=== PATIENT | male | born 1965 | race Two or more races ===

== ENCOUNTER 2020-10-31 14:06 | Emergency (ER) | payer OTHER ==
[2020-10-31 14:16] VITALS: BP 147/82; PULSE 92; TEMP 98; BMI 35.4
== END 2020-10-31 14:50 | disposition home or self-care (01) ==
LOC: JER 14:06
PROC: 0H9GXZZ Drainage of Left Hand Skin, External Approach (ICD-10-PCS; principal; 2020-10-31)
DX: L03.012 Cellulitis of left finger (principal)
CPT/HCPCS: 99282-25

== ENCOUNTER 2021-10-04 04:30 | Emergency (ER) | payer OTHER ==
[2021-10-04] MEDS ORDERED: SODIUM CHLORIDE 0.9% 500 ML INFUS.BAG IV ONE (04:44)
[2021-10-04 04:52] VITALS: BMI 36.9
[2021-10-04 05:57] LABS: BASO % 0.3 % (0-2.0); EOS % 2.5 % (0-4.5); HEMATOCRIT 45.5 % (35.4-49); HEMOGLOBIN 15.3 GM/dL (11.7-16.9); LYMPH % 16.4 % (8-40); MCH 29.6 pg (25.7-33.7); MCHC 33.6 g/dl (32.0-35.9); MEAN CELL VOLUME 88.3 fl (80-96); MEAN PLT VOLUME 7.9 fl (7.5-11.1); MONO % 7.4 % (3.8-10.2); NEUT % 73.4 % (42.8-82.8); PLATELET COUNT 204 10^3/uL (134-434); RBC 5.15 M/mm3 (4.00-5.60); RDW 12.8 % (11.9-15.9)
[2021-10-04 06:00] LABS: VENOUS BASE EXCESS -6.2 mmol/L (-2-2); VENOUS O2 SATURATION 28.6 % (70-80); VENOUS PCO2 45.9 mmHg (38-52); VENOUS PH 7.272 (7.310-7.410)
[2021-10-04 06:10] LABS: INR 1.08 (0.83-1.09); PROTHROMBIN TIME (PATIENT) 12.4 SEC (9.7-13.0)
[2021-10-04 06:16] LABS: BLOOD UREA NITROGEN 10.8 mg/dL (7-18); CALCIUM 8.8 mg/dL (8.5-10.1)
[2021-10-04 06:19] LABS: CREATININE 1.1 mg/dL (0.55-1.3)
[2021-10-04 06:21] LABS: BILIRUBIN,TOTAL 0.4 mg/dL (0.2-1); TOT PROT 7.9 g/dl (6.4-8.2)
[2021-10-04 06:34] LABS: EPI CELLS 1 /uL (0-25.1); HYALINE CASTS 0 /uL (0-3.1); URINE APPEARANCE CLEAR; URINE BACTERIA 2 /uL (0-1359); URINE BILIRUBIN NEGATIVE (NEGATIVE); URINE COLOR YELLOW; URINE GLUCOSE (UA) 3+ (NEGATIVE); URINE KETONE TRACE (NEGATIVE); URINE LEUK ESTERASE NEGATIVE (NEGATIVE); URINE NITRITE NEGATIVE (NEGATIVE); URINE PROTEIN NEGATIVE (NEGATIVE); URINE RBC 41 /uL (0-23.9); URINE UROBILINOGEN 0.2 mg/dL (0.2-1.0); URINE WBC 6 /uL (0-25.8)
[2021-10-04 06:39] LABS: METHADONE, UR NEGATIVE (NEGATIVE); OPIATES, URI NEGATIVE (NEGATIVE); PHENCYCLIDINE,URINE NEGATIVE (NEGATIVE)
[2021-10-04 06:42] LABS: URINE BENZODIAZEPINES NEGATIVE (NEGATIVE)
[2021-10-04 06:46] LABS: COCAINE, UR NEGATIVE (NEGATIVE); URINE AMPHETAMINES NEGATIVE (NEGATIVE); URINE BARBITURATES NEGATIVE (NEGATIVE)
[2021-10-04 06:54] VITALS: BP 105/64
[2021-10-04 07:02] VITALS: TEMP 98
[2021-10-04 07:30] VITALS: PULSE 103
== END 2021-10-04 08:56 | disposition short-term general hospital (02) ==
LOC: JER 04:30
PROC: 3E033NZ Introduction of Analgesics, Hypnotics, Sedatives into Peripheral Vein, Percutaneous Approach (ICD-10-PCS; principal; 2021-10-04)
DX: S22.060A Wedge compression fracture of T7-T8 vertebra, initial encounter for closed fracture (principal); G82.22 Paraplegia, incomplete; S14.109A Unspecified injury at unspecified level of cervical spinal cord, initial encounter; J91.8 Pleural effusion in other conditions classified elsewhere; W10.9XXA Fall (on) (from) unspecified stairs and steps, initial encounter
CPT/HCPCS: 36415; 70450-TC; 70486-TC; 71260-TC; 72125-TC; 72128-TC; 72131-TC; 74177-TC; 80053; 80307; 81003; 82803; 82962; 84484; 85025; 85610; 86850; 86900; 86901; 87086; 93005; 93010; 99291; C9803-CS; Q9967; U0003; U0005

== ENCOUNTER 2021-12-13 20:41 | Inpatient (IN) | payer OTHER ==
[2021-12-13 23:18] LABS: BASO % 0.3 % (0-2.0); EOS % 0.9 % (0-4.5); HEMATOCRIT 37.3 % (35.4-49); HEMOGLOBIN 12.5 GM/dL (11.7-16.9); LYMPH % 9.8 % (8-40); MCH 27.1 pg (25.7-33.7); MCHC 33.6 g/dl (32.0-35.9); MEAN CELL VOLUME 80.7 fl (80-96); MEAN PLT VOLUME 7.1 fl (7.5-11.1); MONO % 7.9 % (3.8-10.2); NEUT % 81.1 % (42.8-82.8); PLATELET COUNT 252 10^3/uL (134-434); RBC 4.62 M/mm3 (4.00-5.60); RDW 14.1 % (11.9-15.9); WHITE BLOOD COUNT 12.2 K/mm3 (4.0-10.0)
[2021-12-13 23:31] LABS: CALCIUM 8.6 mg/dL (8.5-10.1)
[2021-12-13 23:32] LABS: ALBUMIN 2.6 g/dl (3.4-5.0); BLOOD UREA NITROGEN 13.5 mg/dL (7-18)
[2021-12-13 23:35] LABS: CREATININE 0.9 mg/dL (0.55-1.3)
[2021-12-13 23:35] LABS: EPI CELLS 2 /uL (0-25.1); HYALINE CASTS 0 /uL (0-3.1); URINE APPEARANCE TURBID; URINE BACTERIA >9,000 /uL (0-1359); URINE BILIRUBIN NEGATIVE (NEGATIVE); URINE COLOR YELLOW; URINE GLUCOSE (UA) NEGATIVE (NEGATIVE); URINE KETONE NEGATIVE (NEGATIVE); URINE LEUK ESTERASE 3+ (NEGATIVE); URINE NITRITE NEGATIVE (NEGATIVE); URINE PROTEIN 1+ (NEGATIVE); URINE RBC 52 /uL (0-23.9); URINE WBC 2086 /uL (0-25.8)
[2021-12-13 23:37] LABS: BILIRUBIN,TOTAL 0.7 mg/dL (0.2-1); TOT PROT 6.9 g/dl (6.4-8.2)
[2021-12-13] MEDS ORDERED: PIPERACILLIN/TAZOB 4.5 GM 4.5 GM in DEXTROSE 5%-WATER 100 ML IVPB ONE (23:55)
[2021-12-14] MEDS ORDERED: PIPERACILLIN/TAZOB 4.5 GM 4.5 GM/100 ML BAG IVPB ONE (01:17)
[2021-12-14] MEDS: SODIUM CHLORIDE 1,000 ML IV SCH (01:20)
[2021-12-14] MEDS ORDERED: CELECOXIB 100 MG CAPSULE PO PRN (02:11)
[2021-12-14] MEDS: INSULIN SLIDING SCALE (NOVOLOG) 1 VIAL SQ SCH ×4 (06:22→21:52)
[2021-12-14 08:39] LABS: BASO % 0.3 % (0-2.0); EOS % 2.1 % (0-4.5); HEMATOCRIT 34.6 % (35.4-49); HEMOGLOBIN 11.4 GM/dL (11.7-16.9); LYMPH % 15.7 % (8-40); MCH 26.9 pg (25.7-33.7); MCHC 32.9 g/dl (32.0-35.9); MEAN CELL VOLUME 81.9 fl (80-96); MEAN PLT VOLUME 7.5 fl (7.5-11.1); MONO % 8.4 % (3.8-10.2); NEUT % 73.5 % (42.8-82.8); PLATELET COUNT 250 10^3/uL (134-434); RBC 4.22 M/mm3 (4.00-5.60); RDW 14.2 % (11.9-15.9); WHITE BLOOD COUNT 11.8 K/mm3 (4.0-10.0)
[2021-12-14 08:43] LABS: INR 1.31 (0.83-1.09); PROTHROMBIN TIME (PATIENT) 15.1 SEC (9.7-13.0)
[2021-12-14 08:46] LABS: ACTIVATED PTT 34.1 SECONDS (25.2-36.5)
[2021-12-14] MEDS ORDERED: DEXTROSE 5%-WATER - 50 ML IVPB ONE ×2 (09:03→17:44)
[2021-12-14] MEDS ORDERED: PIPERACILLIN/TAZOBACTAM 3.375 GM VIAL IVPB ONE ×2 (09:03→17:44)
[2021-12-14 09:10] LABS: CALCIUM 8.6 mg/dL (8.5-10.1)
[2021-12-14 09:11] LABS: MAGNESIUM 1.9 mg/dL (1.8-2.4)
[2021-12-14 09:12] LABS: BLOOD UREA NITROGEN 12.2 mg/dL (7-18)
[2021-12-14 09:13] LABS: CREATININE 0.7 mg/dL (0.55-1.3)
[2021-12-14 09:14] LABS: PHOSPHOROUS 4.5 mg/dL (2.5-4.9)
[2021-12-14] MEDS: PANTOPRAZOLE 40 MG TABLET PO SCH (09:14)
[2021-12-14] MEDS: ENOXAPARIN NA (PORCINE) 40 MG/0.4 ML DISP.SYRIN SQ SCH (09:14)
[2021-12-14] MEDS ORDERED: PIPERACILLIN/TAZOB 3.375 GM 3.375 GM in DEXTROSE 5%-WATER - 50 ML IVPB SCH (10:00)
[2021-12-14] MEDS ORDERED: METOCLOPRAMIDE HCL 10 MG TABLET (FP) PO SCH (10:00)
[2021-12-14] MEDS ORDERED: BISACODYL 10 MG SUPP.RECT PR PRN (15:00)
[2021-12-14] MEDS: PIPERACILLIN/TAZOB 3.375 GM 3.375 GM in DEXTROSE 5%-WATER - 50 ML IVPB SCH (18:00)
[2021-12-14] MEDS: ACETAMINOPHEN 325 MG TABLET (FP) PO PRN (19:12)
[2021-12-14] MEDS: ATORVASTATIN CA 10 MG TABLET (FP) PO SCH (21:53)
[2021-12-15] MEDS ORDERED: PIPERACILLIN/TAZOBACTAM 3.375 GM VIAL IVPB ONE ×2 (01:17→10:22)
[2021-12-15] MEDS ORDERED: DEXTROSE 5%-WATER - 50 ML IVPB ONE ×2 (01:17→10:22)
[2021-12-15] MEDS: ACETAMINOPHEN 325 MG TABLET (FP) PO PRN ×2 (01:44→22:26)
[2021-12-15] MEDS: PIPERACILLIN/TAZOB 3.375 GM 3.375 GM in DEXTROSE 5%-WATER - 50 ML IVPB SCH ×2 (01:44→10:28)
[2021-12-15] MEDS: SODIUM CHLORIDE 1,000 ML IV SCH (01:45)
[2021-12-15] MEDS: INSULIN SLIDING SCALE (NOVOLOG) 1 VIAL SQ SCH ×4 (07:19→22:25)
[2021-12-15] MEDS: ENOXAPARIN NA (PORCINE) 40 MG/0.4 ML DISP.SYRIN SQ SCH (10:25)
[2021-12-15] MEDS: PANTOPRAZOLE 40 MG TABLET PO SCH (10:26)
[2021-12-15 11:01] LABS: BASO % 0.6 % (0-2.0); EOS % 5.5 % (0-4.5); HEMATOCRIT 33.7 % (35.4-49); HEMOGLOBIN 11.1 GM/dL (11.7-16.9); LYMPH % 17.3 % (8-40); MEAN PLT VOLUME 7.5 fl (7.5-11.1); MONO % 6.5 % (3.8-10.2); NEUT % 70.1 % (42.8-82.8); PLATELET COUNT 256 10^3/uL (134-434); RBC 4.12 M/mm3 (4.00-5.60); RDW 14.2 % (11.9-15.9); WHITE BLOOD COUNT 7.9 K/mm3 (4.0-10.0)
[2021-12-15 11:47] LABS: ALBUMIN 2.4 g/dl (3.4-5.0); BLOOD UREA NITROGEN 7.4 mg/dL (7-18); CALCIUM 8.4 mg/dL (8.5-10.1)
[2021-12-15 11:50] LABS: CREATININE 0.5 mg/dL (0.55-1.3)
[2021-12-15 11:52] LABS: BILIRUBIN,TOTAL 1.4 mg/dL (0.2-1); TOT PROT 6.5 g/dl (6.4-8.2)
[2021-12-15 16:14] VITALS: BMI 34.9
[2021-12-15] MEDS: AMINO ACIDS/PROTEIN HYDROLYS 30 ML LIQUID.PKT PO SCH (17:35)
[2021-12-15] MEDS ORDERED: GABAPENTIN 300 MG CAPSULE PO SCH ×2 (22:00)
[2021-12-15] MEDS: ATORVASTATIN CA 10 MG TABLET (FP) PO SCH (22:07)
[2021-12-15] MEDS: SULFAMETHOXAZOLE/TRIMETHOPRIM 800MG/160MG D.S. TABLET PO SCH (22:07)
[2021-12-15] MEDS: METOCLOPRAMIDE HCL 10 MG TABLET (FP) PO SCH (22:07)
[2021-12-16] MEDS: GABAPENTIN 300 MG CAPSULE PO SCH ×2 (05:48→13:46)
[2021-12-16] MEDS: INSULIN SLIDING SCALE (NOVOLOG) 1 VIAL SQ SCH ×2 (06:22→11:19)
[2021-12-16 09:00] LABS: HEMATOCRIT 34.5 % (35.4-49); HEMOGLOBIN 11.5 GM/dL (11.7-16.9); MCH 27.1 pg (25.7-33.7); MCHC 33.4 g/dl (32.0-35.9); MEAN CELL VOLUME 81.3 fl (80-96); MEAN PLT VOLUME 6.9 fl (7.5-11.1); PLATELET COUNT 265 10^3/uL (134-434); RBC 4.25 M/mm3 (4.00-5.60); RDW 14.1 % (11.9-15.9); WHITE BLOOD COUNT 6.9 K/mm3 (4.0-10.0)
[2021-12-16] MEDS: AMINO ACIDS/PROTEIN HYDROLYS 30 ML LIQUID.PKT PO SCH (09:05)
[2021-12-16] MEDS: ENOXAPARIN NA (PORCINE) 40 MG/0.4 ML DISP.SYRIN SQ SCH (09:05)
[2021-12-16] MEDS: SULFAMETHOXAZOLE/TRIMETHOPRIM 800MG/160MG D.S. TABLET PO SCH (09:05)
[2021-12-16] MEDS: PANTOPRAZOLE 40 MG TABLET PO SCH (09:06)
[2021-12-16] MEDS: METOCLOPRAMIDE HCL 10 MG TABLET (FP) PO SCH (09:07)
[2021-12-16 09:39] LABS: BLOOD UREA NITROGEN 8.4 mg/dL (7-18)
[2021-12-16 09:40] LABS: CREATININE 0.5 mg/dL (0.55-1.3); PHOSPHOROUS 4.1 mg/dL (2.5-4.9)
[2021-12-16] MEDS ORDERED: ASCORBIC ACID 500 MG TABLET (FP) PO SCH (10:00)
[2021-12-16] MEDS ORDERED: CHOLECALCIFEROL (VIT D3) 1,000 UNIT (25 MCG) TABLET PO SCH (10:00)
[2021-12-16] MEDS ORDERED: SIMETHICONE 80 MG TAB.CHEW (FP) PO SCH (10:00)
[2021-12-16] MEDS ORDERED: COLLAGENASE CLOSTRIDIUM HIST. 30 GRAMS TUBE TP SCH (10:45)
[2021-12-16 14:06] VITALS: BP 113/62; PULSE 76; TEMP 98.9
== END 2021-12-16 17:50 | disposition home health service (06) | DRG 463 ==
LOC: JER 20:41 → JERBED 12-14 00:50 → J8W 12-14 04:21
PROVIDERS: ADMIT Hospitalist; ATTEND Internal Medicine
DX: N39.0 Urinary tract infection, site not specified (principal); B96.29 Other Escherichia coli [E. coli] as the cause of diseases classified elsewhere; E11.9 Type 2 diabetes mellitus without complications; G82.20 Paraplegia, unspecified; L89.153 Pressure ulcer of sacral region, stage 3; E66.9 Obesity, unspecified; Z68.35 Body mass index [BMI] 35.0-35.9, adult
CPT/HCPCS: 36415; 71045-TC-FY; 80048; 80053; 81003; 82962; 83735; 84100; 85025; 85027; 85610; 85730; 87086; 87186; 93005; 93010; 99285-25; C9803-CS; E0372; U0003; U0005

== ENCOUNTER 2022-04-24 11:34 | Inpatient (IN) | payer OTHER ==
[2022-04-24 15:39] LABS: BASO % 0.4 % (0-2.0); EOS % 6.2 % (0-4.5); HEMATOCRIT 38.4 % (35.4-49); MCH 27.7 pg (25.7-33.7); MEAN CELL VOLUME 81.5 fl (80-96); MEAN PLT VOLUME 7.9 fl (7.5-11.1); MONO % 5.8 % (3.8-10.2); NEUT % 67.6 % (42.8-82.8); PLATELET COUNT 253 10^3/uL (134-434); RBC 4.71 M/mm3 (4.00-5.60); RDW 14.3 % (11.9-15.9); WHITE BLOOD COUNT 10.4 K/mm3 (4.0-10.0)
[2022-04-24] MEDS ORDERED: VANCOMYCIN 1 GM in D5W (PRE-DOCKED) 1,000 MG/250 ML IVPB ONE (16:02)
[2022-04-24 16:04] LABS: CALCIUM 8.4 mg/dL (8.5-10.1)
[2022-04-24 16:05] LABS: ALBUMIN 2.9 g/dl (3.4-5.0); BLOOD UREA NITROGEN 10.6 mg/dL (7-18)
[2022-04-24 16:08] LABS: CREATININE 0.6 mg/dL (0.55-1.3)
[2022-04-24 16:09] LABS: BILIRUBIN,TOTAL 0.4 mg/dL (0.2-1); TOT PROT 7.3 g/dl (6.4-8.2)
[2022-04-24] MEDS ORDERED: VANCOMYCIN/WATER FOR INJ (PEG) 1,000 MG/200 ML BAG IVPB ONE (16:29)
[2022-04-24] MEDS ORDERED: oxyCODONE HCL 5 MG TABLET PO PRN (17:19)
[2022-04-24] MEDS ORDERED: PIPERACILLIN/TAZOB 3.375 GM 3.375 GM in DEXTROSE 5%-WATER - 50 ML IVPB ONE (17:27)
[2022-04-24] MEDS ORDERED: PIPERACILLIN/TAZOB 3.375 GM 3.375 GM/50 ML BAG IVPB ONE (17:44)
[2022-04-24] MEDS: ATORVASTATIN CA 10 MG TABLET (FP) PO SCH (22:36)
[2022-04-24] MEDS: GABAPENTIN 300 MG CAPSULE PO SCH (22:36)
[2022-04-24] MEDS: HEPARIN NA (PORCINE) 5,000 UNITS/ML 1ML VIAL SQ SCH (22:36)
[2022-04-24] MEDS: INSULIN SLIDING SCALE (NOVOLOG) 1 VIAL SQ SCH (22:48)
[2022-04-24] MEDS: CELECOXIB 100 MG CAPSULE PO SCH (22:56)
[2022-04-24] MEDS: MESALAMINE 1000 MG/SUPP.RECT SUPP RC SCH (22:56)
[2022-04-24 23:08] VITALS: BMI 32.1
[2022-04-25] MEDS: GABAPENTIN 300 MG CAPSULE PO SCH ×3 (06:34→22:31)
[2022-04-25] MEDS: INSULIN SLIDING SCALE (NOVOLOG) 1 VIAL SQ SCH ×4 (06:37→22:35)
[2022-04-25] MEDS: HEPARIN NA (PORCINE) 5,000 UNITS/ML 1ML VIAL SQ SCH ×3 (06:37→22:31)
[2022-04-25] MEDS: TAMSULOSIN HCL 0.4 MG CAP PO SCH (08:29)
[2022-04-25 09:23] LABS: BASO % 0.7 % (0-2.0); EOS % 8.6 % (0-4.5); HEMATOCRIT 37.8 % (35.4-49); HEMOGLOBIN 12.8 GM/dL (11.7-16.9); LYMPH % 28.9 % (8-40); MCH 27.5 pg (25.7-33.7); MEAN CELL VOLUME 80.9 fl (80-96); MEAN PLT VOLUME 7.3 fl (7.5-11.1); MONO % 7.9 % (3.8-10.2); NEUT % 53.9 % (42.8-82.8); PLATELET COUNT 253 10^3/uL (134-434); RBC 4.67 M/mm3 (4.00-5.60); RDW 14.3 % (11.9-15.9); WHITE BLOOD COUNT 8.3 K/mm3 (4.0-10.0)
[2022-04-25 09:42] LABS: CALCIUM 8.7 mg/dL (8.5-10.1)
[2022-04-25 09:44] LABS: BLOOD UREA NITROGEN 11.1 mg/dL (7-18)
[2022-04-25 09:46] LABS: CREATININE 0.6 mg/dL (0.55-1.3)
[2022-04-25 09:48] LABS: BILIRUBIN,TOTAL 0.5 mg/dL (0.2-1); TOT PROT 7.3 g/dl (6.4-8.2)
[2022-04-25] MEDS: CELECOXIB 100 MG CAPSULE PO SCH ×2 (10:00→22:29)
[2022-04-25] MEDS ORDERED: SIMETHICONE 80 MG TAB.CHEW (FP) PO PRN (10:00)
[2022-04-25] MEDS: METOCLOPRAMIDE HCL 10 MG TABLET (FP) PO SCH (10:00)
[2022-04-25] MEDS: PANTOPRAZOLE 20 MG TABLET PO SCH (10:01)
[2022-04-25] MEDS: CHOLECALCIFEROL (VIT D3) 1,000 UNIT (25 MCG) TABLET PO SCH (10:01)
[2022-04-25] MEDS: SENNOSIDES 8.6MG TABLET (FP) PO SCH (10:01)
[2022-04-25] MEDS: INSULIN (LEVEMIR) 100 UNITS/ML UNITS SQ SCH (10:14)
[2022-04-25] MEDS ORDERED: VANCOMYCIN/WATER FOR INJ (PEG) 1 GM/200 ML BAG IVPB SCH (11:00)
[2022-04-25] MEDS ORDERED: oxyCODONE HCL 5 MG TABLET PO PRN (11:32)
[2022-04-25] MEDS: PSYLLIUM 5.85 GM PACKET PO SCH (12:59)
[2022-04-25] MEDS: COLLAGENASE CLOSTRIDIUM HIST. 30 GRAMS TUBE TP SCH (14:56)
[2022-04-25] MEDS: PIPERACILLIN/TAZOB 3.375 GM 3.375 GM in DEXTROSE 5%-WATER - 50 ML IVPB SCH (20:03)
[2022-04-25] MEDS: MESALAMINE 1000 MG/SUPP.RECT SUPP RC SCH (22:26)
[2022-04-25] MEDS: ATORVASTATIN CA 10 MG TABLET (FP) PO SCH (22:30)
[2022-04-26] MEDS: VANCOMYCIN/WATER FOR INJ (PEG) 1,000 MG/200 ML BAG IVPB SCH ×2 (00:32→12:07)
[2022-04-26] MEDS: PIPERACILLIN/TAZOB 3.375 GM 3.375 GM in DEXTROSE 5%-WATER - 50 ML IVPB SCH ×3 (02:10→18:22)
[2022-04-26] MEDS: HEPARIN NA (PORCINE) 5,000 UNITS/ML 1ML VIAL SQ SCH ×3 (06:05→22:23)
[2022-04-26] MEDS: GABAPENTIN 300 MG CAPSULE PO SCH ×3 (06:06→22:21)
[2022-04-26] MEDS: INSULIN SLIDING SCALE (NOVOLOG) 1 VIAL SQ SCH ×4 (06:08→22:22)
[2022-04-26] MEDS: CELECOXIB 100 MG CAPSULE PO SCH ×2 (09:45→22:21)
[2022-04-26] MEDS: CHOLECALCIFEROL (VIT D3) 1,000 UNIT (25 MCG) TABLET PO SCH (09:45)
[2022-04-26] MEDS: TAMSULOSIN HCL 0.4 MG CAP PO SCH (09:45)
[2022-04-26] MEDS: SENNOSIDES 8.6MG TABLET (FP) PO SCH (09:45)
[2022-04-26] MEDS: PANTOPRAZOLE 20 MG TABLET PO SCH (09:45)
[2022-04-26] MEDS: PSYLLIUM 5.85 GM PACKET PO SCH (09:45)
[2022-04-26] MEDS: COLLAGENASE CLOSTRIDIUM HIST. 30 GRAMS TUBE TP SCH (09:46)
[2022-04-26] MEDS: METOCLOPRAMIDE HCL 10 MG TABLET (FP) PO SCH (09:46)
[2022-04-26] MEDS: INSULIN (LEVEMIR) 100 UNITS/ML UNITS SQ SCH (09:47)
[2022-04-26 10:10] LABS: BASO % 0.8 % (0-2.0); EOS % 9.4 % (0-4.5); HEMATOCRIT 35.7 % (35.4-49); LYMPH % 28.7 % (8-40); MCH 27.4 pg (25.7-33.7); MCHC 33.7 g/dl (32.0-35.9); MEAN CELL VOLUME 81.4 fl (80-96); MONO % 7.1 % (3.8-10.2); PLATELET COUNT 231 10^3/uL (134-434); RBC 4.39 M/mm3 (4.00-5.60); RDW 14.1 % (11.9-15.9); WHITE BLOOD COUNT 7.9 K/mm3 (4.0-10.0)
[2022-04-26 10:32] LABS: ALBUMIN 2.7 g/dl (3.4-5.0); BLOOD UREA NITROGEN 10.1 mg/dL (7-18); CALCIUM 8.3 mg/dL (8.5-10.1); MAGNESIUM 1.7 mg/dL (1.8-2.4)
[2022-04-26 10:34] LABS: CREATININE 0.6 mg/dL (0.55-1.3)
[2022-04-26 10:36] LABS: BILIRUBIN,TOTAL 0.4 mg/dL (0.2-1); PHOSPHOROUS 3.4 mg/dL (2.5-4.9); TOT PROT 6.8 g/dl (6.4-8.2)
[2022-04-26 15:44] LABS: EPI CELLS 11 /uL (0-25.1); HYALINE CASTS 0 /uL (0-3.1); PH,URINE 5.5 (5.0-8.0); URINE APPEARANCE CLEAR; URINE BACTERIA 9 /uL (0-1359); URINE BILIRUBIN NEGATIVE (NEGATIVE); URINE COLOR YELLOW; URINE GLUCOSE (UA) 2+ (NEGATIVE); URINE KETONE NEGATIVE (NEGATIVE); URINE LEUK ESTERASE 2+ (NEGATIVE); URINE NITRITE NEGATIVE (NEGATIVE); URINE PROTEIN NEGATIVE (NEGATIVE); URINE UROBILINOGEN 0.2 mg/dL (0.2-1.0); URINE WBC 379 /uL (0-25.8)
[2022-04-26 17:29] LABS: URINE RBC 72.6 /uL (0-23.9)
[2022-04-26 17:30] LABS: YEAST PRESENT (NEGATIVE)
[2022-04-26 19:03] VITALS: RESP 18
[2022-04-26] MEDS: ATORVASTATIN CA 10 MG TABLET (FP) PO SCH (22:21)
[2022-04-26] MEDS: MESALAMINE 1000 MG/SUPP.RECT SUPP RC SCH ×2 (22:21→22:27)
[2022-04-27] MEDS: PIPERACILLIN/TAZOB 3.375 GM 3.375 GM in DEXTROSE 5%-WATER - 50 ML IVPB SCH ×3 (01:13→17:28)
[2022-04-27] MEDS: VANCOMYCIN/WATER FOR INJ (PEG) 1,000 MG/200 ML BAG IVPB SCH ×2 (01:23→13:13)
[2022-04-27] MEDS: GABAPENTIN 300 MG CAPSULE PO SCH ×2 (05:59→13:12)
[2022-04-27] MEDS: HEPARIN NA (PORCINE) 5,000 UNITS/ML 1ML VIAL SQ SCH ×2 (05:59→13:14)
[2022-04-27] MEDS: INSULIN SLIDING SCALE (NOVOLOG) 1 VIAL SQ SCH ×3 (06:00→16:48)
[2022-04-27 11:10] LABS: BASO % 0.7 % (0-2.0); EOS % 10.3 % (0-4.5); LYMPH % 29.5 % (8-40); MCH 27.4 pg (25.7-33.7); MCHC 33.4 g/dl (32.0-35.9); MEAN CELL VOLUME 82.2 fl (80-96); MEAN PLT VOLUME 7.6 fl (7.5-11.1); MONO % 7.6 % (3.8-10.2); NEUT % 51.9 % (42.8-82.8); PLATELET COUNT 231 10^3/uL (134-434); RBC 4.38 M/mm3 (4.00-5.60); RDW 14.6 % (11.9-15.9); WHITE BLOOD COUNT 7.2 K/mm3 (4.0-10.0)
[2022-04-27 11:23] LABS: ALBUMIN 2.7 g/dl (3.4-5.0); BLOOD UREA NITROGEN 6.8 mg/dL (7-18); MAGNESIUM 1.7 mg/dL (1.8-2.4)
[2022-04-27 11:25] LABS: CREATININE 0.5 mg/dL (0.55-1.3)
[2022-04-27 11:26] LABS: PHOSPHOROUS 3.2 mg/dL (2.5-4.9)
[2022-04-27 11:28] LABS: BILIRUBIN,TOTAL 0.5 mg/dL (0.2-1); TOT PROT 6.6 g/dl (6.4-8.2)
[2022-04-27 11:37] LABS: CALCIUM 8.3 mg/dL (8.5-10.1)
[2022-04-27] MEDS: METOCLOPRAMIDE HCL 10 MG TABLET (FP) PO SCH (11:37)
[2022-04-27] MEDS: PANTOPRAZOLE 20 MG TABLET PO SCH (11:37)
[2022-04-27] MEDS: CHOLECALCIFEROL (VIT D3) 1,000 UNIT (25 MCG) TABLET PO SCH (11:37)
[2022-04-27] MEDS: PSYLLIUM 5.85 GM PACKET PO SCH (11:37)
[2022-04-27] MEDS: SENNOSIDES 8.6MG TABLET (FP) PO SCH (11:37)
[2022-04-27] MEDS: TAMSULOSIN HCL 0.4 MG CAP PO SCH (11:37)
[2022-04-27] MEDS: COLLAGENASE CLOSTRIDIUM HIST. 30 GRAMS TUBE TP SCH (11:38)
[2022-04-27] MEDS: CELECOXIB 100 MG CAPSULE PO SCH (11:38)
[2022-04-27] MEDS: INSULIN (LEVEMIR) 100 UNITS/ML UNITS SQ SCH (13:08)
[2022-04-27] MEDS ORDERED: MAGNESIUM OXIDE 400 MG TABLET (FP) PO ONE (16:47)
[2022-04-27 18:27] VITALS: BP 101/54; PULSE 83; TEMP 98
== END 2022-04-27 21:26 | disposition home or self-care (01) | DRG 380 ==
LOC: JER 11:34 → JERBED 17:12 → J5S 21:04 → OBSVTOIN 04-26 07:52
PROVIDERS: ADMIT Internal Medicine; ATTEND Internal Medicine
DX: L89.153 Pressure ulcer of sacral region, stage 3 (principal); E11.9 Type 2 diabetes mellitus without complications; G82.20 Paraplegia, unspecified; E66.9 Obesity, unspecified; Z68.32 Body mass index [BMI] 32.0-32.9, adult; D72.829 Elevated white blood cell count, unspecified; Z79.4 Long term (current) use of insulin
CPT/HCPCS: 36415; 80053; 81003; 82962; 83735; 84100; 85025; 87040; 87086; 93005; 93010; 99285-25; C9803-CS; G0378; J1644; U0003; U0005

== ENCOUNTER 2022-06-04 16:01 | Inpatient (IN) | payer OTHER ==
[2022-06-04] MEDS ORDERED: VANCOMYCIN 1 GM in D5W (PRE-DOCKED) 1,000 MG/250 ML IVPB ONE (17:38)
[2022-06-04] MEDS ORDERED: ACETAMINOPHEN 1000 MG/100 ML BAG IVPB ONE (17:41)
[2022-06-04] MEDS ORDERED: PIPERACILLIN/TAZOB 3.375 GM 3.375 GM in DEXTROSE 5%-WATER - 50 ML IVPB SCH (17:45)
[2022-06-04] MEDS ORDERED: VANCOMYCIN/WATER FOR INJ (PEG) 1,000 MG/200 ML BAG IVPB ONE (18:04)
[2022-06-04] MEDS ORDERED: PIPERACILLIN/TAZOB 3.375 GM 3.375 GM/50 ML BAG IVPB ONE (18:05)
[2022-06-04] MEDS ORDERED: ONDANSETRON 4 MG/2 ML VIAL IVPUSH ONE (18:26)
[2022-06-04] MEDS ORDERED: ONDANSETRON 4 MG/2 ML VIAL ONE (18:27)
[2022-06-04] MEDS: SODIUM CHLORIDE 0.9% 1000 ML INFUS.BAG IV SCH (18:37)
[2022-06-04] MEDS ORDERED: ACETAMINOPHEN INJECTION 100 ML IVPB ONE (18:46)
[2022-06-04 18:56] LABS: BASO % 0.3 % (0-2.0); EOS % 0.6 % (0-4.5); HEMATOCRIT 35.2 % (35.4-49); HEMOGLOBIN 11.5 GM/dL (11.7-16.9); LYMPH % 9.5 % (8-40); MCH 26.5 pg (25.7-33.7); MCHC 32.7 g/dl (32.0-35.9); MEAN CELL VOLUME 81.1 fl (80-96); MEAN PLT VOLUME 8.2 fl (7.5-11.1); NEUT % 81.6 % (42.8-82.8); PLATELET COUNT 327 10^3/uL (134-434); RBC 4.34 M/mm3 (4.00-5.60); RDW 14.5 % (11.9-15.9); WHITE BLOOD COUNT 14.9 K/mm3 (4.0-10.0)
[2022-06-04 19:02] LABS: EPI CELLS 1 /uL (0-25.1); HYALINE CASTS 61 /uL (0-3.1); PH,URINE 5.5 (5.0-8.0); URINE APPEARANCE CLOUDY; URINE BACTERIA >9,000 /uL (0-1359); URINE BILIRUBIN 1+ (NEGATIVE); URINE COLOR DK YELLOW; URINE GLUCOSE (UA) 3+ (NEGATIVE); URINE KETONE TRACE (NEGATIVE); URINE LEUK ESTERASE 2+ (NEGATIVE); URINE NITRITE NEGATIVE (NEGATIVE); URINE PROTEIN 1+ (NEGATIVE); URINE UROBILINOGEN 4.0 E.U/dl mg/dL (0.2-1.0); URINE WBC 966 /uL (0-25.8)
[2022-06-04 19:03] LABS: INR 1.34 (0.83-1.09); PROTHROMBIN TIME (PATIENT) 15.4 SEC (9.7-13.0)
[2022-06-04 19:06] LABS: ACTIVATED PTT 34.1 SECONDS (25.2-36.5)
[2022-06-04 19:18] LABS: URINE RBC 40.6 /uL (0-23.9)
[2022-06-04 19:25] LABS: VENOUS O2 SATURATION 91.2 % (70-80); VENOUS PH 7.496 (7.310-7.410)
[2022-06-04] MEDS ORDERED: SODIUM CHLORIDE 0.9% 500 ML INFUS.BAG IV ONE (22:10)
[2022-06-04 22:35] LABS: ALBUMIN 2.2 g/dl (3.4-5.0); ALK PHOS 133 U/L (45-117); BILIRUBIN,TOTAL 0.9 mg/dL (0.2-1); BLOOD UREA NITROGEN 6.8 mg/dL (7-18); CHLORIDE 96 mmol/L (98-107); CO2 21 mmol/L (21-32); CREATININE 0.6 mg/dL (0.55-1.3); GLUCOSE,RANDOM 205 mg/dL (74-106); SGOT/AST 82 U/L (15-37); SODIUM 129 mmol/L (136-145); TOT PROT 7.7 g/dl (6.4-8.2)
[2022-06-04 22:37] LABS: ANION GAP 11 MMOL/L (8-16); SGPT/ALT 27 U/L (13-61)
[2022-06-05 00:44] LABS: CALCIUM 7.6 mg/dL (8.5-10.1); CHLORIDE 103 mmol/L (98-107); SODIUM 135 mmol/L (136-145)
[2022-06-05 00:45] LABS: ALBUMIN 2.1 g/dl (3.4-5.0); ANION GAP 11 MMOL/L (8-16); BLOOD UREA NITROGEN 6.2 mg/dL (7-18); CO2 21 mmol/L (21-32); GLUCOSE,RANDOM 253 mg/dL (74-106)
[2022-06-05 00:48] LABS: CREATININE 0.6 mg/dL (0.55-1.3); SGOT/AST 17 U/L (15-37); SGPT/ALT 24 U/L (13-61)
[2022-06-05 00:49] LABS: TOT PROT 6.6 g/dl (6.4-8.2)
[2022-06-05 00:50] LABS: BILIRUBIN,TOTAL 0.6 mg/dL (0.2-1)
[2022-06-05 00:51] LABS: ALK PHOS 119 U/L (45-117)
[2022-06-05] MEDS ORDERED: VANCOMYCIN/WATER 1,250 MG/250 ML BAG (RESTRICTED TO ID ONLY) IVPB SCH (02:45)
[2022-06-05] MEDS ORDERED: VANCOMYCIN/WATER 1250 MG 1,250 MG/250 ML BAG IVPB ONE ×2 (05:27→18:06)
[2022-06-05] MEDS: VANCOMYCIN/WATER 1250 MG 1,250 MG/250 ML BAG IVPB SCH ×2 (05:58→18:27)
[2022-06-05 06:10] LABS: BASO % 0.5 % (0-2.0); EOS % 0.9 % (0-4.5); HEMATOCRIT 31.6 % (35.4-49); HEMOGLOBIN 10.3 GM/dL (11.7-16.9); LYMPH % 10.5 % (8-40); MCH 26.3 pg (25.7-33.7); MCHC 32.7 g/dl (32.0-35.9); MEAN CELL VOLUME 80.3 fl (80-96); MONO % 8.6 % (3.8-10.2); NEUT % 79.5 % (42.8-82.8); PLATELET COUNT 288 10^3/uL (134-434); RBC 3.93 M/mm3 (4.00-5.60); RDW 14.4 % (11.9-15.9); WHITE BLOOD COUNT 11.7 K/mm3 (4.0-10.0)
[2022-06-05 06:28] LABS: CALCIUM 7.8 mg/dL (8.5-10.1)
[2022-06-05 06:30] LABS: BLOOD UREA NITROGEN 4.6 mg/dL (7-18); MAGNESIUM 1.8 mg/dL (1.8-2.4)
[2022-06-05 06:32] LABS: PHOSPHOROUS 2.4 mg/dL (2.5-4.9)
[2022-06-05 06:34] LABS: BILIRUBIN,TOTAL 0.5 mg/dL (0.2-1); TOT PROT 6.5 g/dl (6.4-8.2)
[2022-06-05 07:02] LABS: CREATININE 0.5 mg/dL (0.55-1.3)
[2022-06-05] MEDS: INSULIN SLIDING SCALE (NOVOLOG) 1 VIAL SQ SCH ×3 (09:46→17:13)
[2022-06-05] MEDS ORDERED: ENOXAPARIN NA (PORCINE) 40 MG/0.4 ML DISP.SYRIN SQ ONE (09:47)
[2022-06-05] MEDS ORDERED: PIPERACILLIN/TAZOB 3.375 GM 3.375 GM/50 ML BAG IVPB ONE ×2 (09:48→16:59)
[2022-06-05] MEDS: PIPERACILLIN/TAZOB 3.375 GM 3.375 GM in DEXTROSE 5%-WATER - 50 ML IVPB SCH ×2 (10:22→17:13)
[2022-06-05] MEDS: ENOXAPARIN NA (PORCINE) 40 MG/0.4 ML DISP.SYRIN SQ SCH (10:22)
[2022-06-05] MEDS ORDERED: ACETAMINOPHEN 325 MG TABLET (FP) ONE (18:11)
[2022-06-05] MEDS: ACETAMINOPHEN 325 MG TABLET (FP) PO PRN (18:27)
[2022-06-06] MEDS ORDERED: PIPERACILLIN/TAZOB 3.375 GM 3.375 GM/50 ML BAG IVPB ONE (00:37)
[2022-06-06] MEDS ORDERED: ATORVASTATIN CA 40 MG TABLET (FP) ONE (00:37)
[2022-06-06] MEDS ORDERED: FAMOTIDINE 20 MG TABLET ONE (00:37)
[2022-06-06] MEDS: PIPERACILLIN/TAZOB 3.375 GM 3.375 GM in DEXTROSE 5%-WATER - 50 ML IVPB SCH ×4 (00:44→18:40)
[2022-06-06] MEDS: ATORVASTATIN CA 40 MG TABLET (FP) PO SCH (00:44)
[2022-06-06] MEDS: FAMOTIDINE 20 MG TABLET PO SCH ×2 (00:45→11:40)
[2022-06-06] MEDS: INSULIN SLIDING SCALE (NOVOLOG) 1 VIAL SQ SCH ×4 (00:56→18:40)
[2022-06-06 08:00] LABS: BASO % 0.4 % (0-2.0); HEMATOCRIT 32.3 % (35.4-49); HEMOGLOBIN 10.5 GM/dL (11.7-16.9); LYMPH % 9.6 % (8-40); MCH 26.1 pg (25.7-33.7); MCHC 32.5 g/dl (32.0-35.9); MEAN CELL VOLUME 80.3 fl (80-96); MEAN PLT VOLUME 7.4 fl (7.5-11.1); MONO % 7.8 % (3.8-10.2); NEUT % 81.2 % (42.8-82.8); PLATELET COUNT 268 10^3/uL (134-434); RBC 4.03 M/mm3 (4.00-5.60); RDW 14.5 % (11.9-15.9); WHITE BLOOD COUNT 13.5 K/mm3 (4.0-10.0)
[2022-06-06 08:23] LABS: BLOOD UREA NITROGEN 4.1 mg/dL (7-18); CALCIUM 7.9 mg/dL (8.5-10.1)
[2022-06-06 08:27] LABS: CREATININE 0.5 mg/dL (0.55-1.3)
[2022-06-06 08:28] LABS: BILIRUBIN,TOTAL 0.8 mg/dL (0.2-1); TOT PROT 6.7 g/dl (6.4-8.2)
[2022-06-06 11:29] VITALS: BMI 32.1
[2022-06-06] MEDS: ENOXAPARIN NA (PORCINE) 40 MG/0.4 ML DISP.SYRIN SQ SCH (11:38)
[2022-06-06] MEDS: ACETAMINOPHEN 325 MG TABLET (FP) PO PRN (11:40)
[2022-06-06] MEDS ORDERED: VANCOMYCIN 1,000 MG in DEXTROSE 5%-WATER - 250 ML IVPB SCH (12:45)
[2022-06-06] MEDS: VANCOMYCIN/WATER FOR INJ (PEG) 1,000 MG/200 ML BAG IVPB SCH (14:01)
[2022-06-06] MEDS: AMINO ACIDS/PROTEIN HYDROLYS 30 ML LIQUID.PKT PO SCH (18:41)
[2022-06-07] MEDS: POTASSIUM CHLORIDE ORAL LIQUID 20 MEQ/15 ML PO SCH ×2 (01:06→10:21)
[2022-06-07] MEDS: ATORVASTATIN CA 40 MG TABLET (FP) PO SCH ×2 (01:06→22:36)
[2022-06-07] MEDS: INSULIN SLIDING SCALE (NOVOLOG) 1 VIAL SQ SCH ×5 (01:09→22:36)
[2022-06-07] MEDS: VANCOMYCIN/WATER FOR INJ (PEG) 1,000 MG/200 ML BAG IVPB SCH ×2 (01:09→13:50)
[2022-06-07] MEDS: FAMOTIDINE 20 MG TABLET PO SCH ×3 (01:09→22:36)
[2022-06-07] MEDS: PIPERACILLIN/TAZOB 3.375 GM 3.375 GM in DEXTROSE 5%-WATER - 50 ML IVPB SCH ×3 (03:33→18:43)
[2022-06-07] MEDS: INSULIN (LEVEMIR) 100 UNITS/ML UNITS SQ SCH (06:00)
[2022-06-07 09:25] LABS: BASO % 0.4 % (0-2.0); EOS % 0.7 % (0-4.5); HEMOGLOBIN 10.3 GM/dL (11.7-16.9); LYMPH % 11.9 % (8-40); MCH 26.1 pg (25.7-33.7); MCHC 32.3 g/dl (32.0-35.9); MEAN CELL VOLUME 80.6 fl (80-96); MEAN PLT VOLUME 6.9 fl (7.5-11.1); MONO % 7.1 % (3.8-10.2); NEUT % 79.9 % (42.8-82.8); PLATELET COUNT 310 10^3/uL (134-434); RBC 3.97 M/mm3 (4.00-5.60); RDW 14.5 % (11.9-15.9)
[2022-06-07 09:48] LABS: CALCIUM 7.9 mg/dL (8.5-10.1)
[2022-06-07 09:50] LABS: BLOOD UREA NITROGEN 3.9 mg/dL (7-18)
[2022-06-07 09:52] LABS: PHOSPHOROUS 2.7 mg/dL (2.5-4.9)
[2022-06-07 09:53] LABS: CREATININE 0.4 mg/dL (0.55-1.3)
[2022-06-07] MEDS: AMINO ACIDS/PROTEIN HYDROLYS 30 ML LIQUID.PKT PO SCH ×3 (10:20→17:40)
[2022-06-07] MEDS: MULTIVITAMINS (DAILY MVI) TABLET (FP) PO SCH (10:21)
[2022-06-07] MEDS: ENOXAPARIN NA (PORCINE) 40 MG/0.4 ML DISP.SYRIN SQ SCH (10:21)
[2022-06-07] MEDS: ASCORBIC ACID 500 MG TABLET (FP) PO SCH (10:21)
[2022-06-07] MEDS: SENNOSIDES 8.6MG TABLET (FP) PO SCH (15:15)
[2022-06-07] MEDS: GABAPENTIN 300 MG CAPSULE PO SCH (22:36)
[2022-06-08] MEDS: VANCOMYCIN/WATER FOR INJ (PEG) 1,000 MG/200 ML BAG IVPB SCH ×2 (01:35→12:37)
[2022-06-08] MEDS: PIPERACILLIN/TAZOB 3.375 GM 3.375 GM in DEXTROSE 5%-WATER - 50 ML IVPB SCH ×2 (02:03→10:38)
[2022-06-08] MEDS: INSULIN (LEVEMIR) 100 UNITS/ML UNITS SQ SCH (07:25)
[2022-06-08] MEDS: GABAPENTIN 300 MG CAPSULE PO SCH ×3 (07:25→22:02)
[2022-06-08] MEDS: INSULIN SLIDING SCALE (NOVOLOG) 1 VIAL SQ SCH ×4 (07:27→22:05)
[2022-06-08 09:06] LABS: BASO % 0.4 % (0-2.0); EOS % 1.6 % (0-4.5); HEMATOCRIT 31.3 % (35.4-49); LYMPH % 11.1 % (8-40); MCH 25.9 pg (25.7-33.7); MCHC 31.9 g/dl (32.0-35.9); MEAN CELL VOLUME 81.1 fl (80-96); MEAN PLT VOLUME 6.3 fl (7.5-11.1); MONO % 7.8 % (3.8-10.2); NEUT % 79.1 % (42.8-82.8); PLATELET COUNT 340 10^3/uL (134-434); RBC 3.85 M/mm3 (4.00-5.60); RDW 14.3 % (11.9-15.9); WHITE BLOOD COUNT 12.1 K/mm3 (4.0-10.0)
[2022-06-08 09:21] LABS: BLOOD UREA NITROGEN 4.8 mg/dL (7-18)
[2022-06-08 09:24] LABS: CREATININE 0.4 mg/dL (0.55-1.3)
[2022-06-08] MEDS: SENNOSIDES 8.6MG TABLET (FP) PO SCH (10:38)
[2022-06-08] MEDS: ASCORBIC ACID 500 MG TABLET (FP) PO SCH (10:38)
[2022-06-08] MEDS: MULTIVITAMINS (DAILY MVI) TABLET (FP) PO SCH (10:38)
[2022-06-08] MEDS: ENOXAPARIN NA (PORCINE) 40 MG/0.4 ML DISP.SYRIN SQ SCH (10:38)
[2022-06-08] MEDS: FAMOTIDINE 20 MG TABLET PO SCH ×2 (10:38→22:02)
[2022-06-08] MEDS: AMINO ACIDS/PROTEIN HYDROLYS 30 ML LIQUID.PKT PO SCH ×3 (10:39→18:05)
[2022-06-08] MEDS: CELECOXIB 100 MG CAPSULE PO SCH (10:39)
[2022-06-08] MEDS: CEFTRIAXONE 2 GM in DEXTROSE 5%-WATER 100 ML IVPB SCH (14:19)
[2022-06-08] MEDS: ATORVASTATIN CA 40 MG TABLET (FP) PO SCH (22:02)
[2022-06-09] MEDS: VANCOMYCIN/WATER FOR INJ (PEG) 1,000 MG/200 ML BAG IVPB SCH ×3 (01:00→16:54)
[2022-06-09] MEDS: GABAPENTIN 300 MG CAPSULE PO SCH ×4 (07:08→22:28)
[2022-06-09] MEDS: INSULIN (LEVEMIR) 100 UNITS/ML UNITS SQ SCH (07:08)
[2022-06-09] MEDS: INSULIN SLIDING SCALE (NOVOLOG) 1 VIAL SQ SCH ×5 (07:09→22:44)
[2022-06-09] MEDS: PIPERACILLIN/TAZOB 3.375 GM 3.375 GM in DEXTROSE 5%-WATER - 50 ML IVPB SCH ×2 (08:29→08:30)
[2022-06-09] MEDS: SODIUM CHLORIDE 0.9% 1000 ML INFUS.BAG IV SCH (08:30)
[2022-06-09] MEDS: AMINO ACIDS/PROTEIN HYDROLYS 30 ML LIQUID.PKT PO SCH ×3 (08:57→16:54)
[2022-06-09 09:23] LABS: BASO % 0.3 % (0-2.0); EOS % 1.8 % (0-4.5); HEMOGLOBIN 10.2 GM/dL (11.7-16.9); LYMPH % 11.5 % (8-40); MCH 26.5 pg (25.7-33.7); MCHC 32.9 g/dl (32.0-35.9); MEAN CELL VOLUME 80.7 fl (80-96); MEAN PLT VOLUME 6.4 fl (7.5-11.1); NEUT % 79.4 % (42.8-82.8); PLATELET COUNT 350 10^3/uL (134-434); RBC 3.84 M/mm3 (4.00-5.60); RDW 14.4 % (11.9-15.9); WHITE BLOOD COUNT 12.8 K/mm3 (4.0-10.0)
[2022-06-09] MEDS: SENNOSIDES 8.6MG TABLET (FP) PO SCH (09:39)
[2022-06-09 09:43] LABS: CALCIUM 7.8 mg/dL (8.5-10.1)
[2022-06-09 09:44] LABS: MAGNESIUM 1.9 mg/dL (1.8-2.4)
[2022-06-09] MEDS: ENOXAPARIN NA (PORCINE) 40 MG/0.4 ML DISP.SYRIN SQ SCH (09:45)
[2022-06-09 09:46] LABS: CREATININE 0.5 mg/dL (0.55-1.3); PHOSPHOROUS 3.2 mg/dL (2.5-4.9)
[2022-06-09] MEDS: FAMOTIDINE 20 MG TABLET PO SCH ×2 (09:48→22:29)
[2022-06-09] MEDS: CEFTRIAXONE 2 GM in DEXTROSE 5%-WATER 100 ML IVPB SCH (09:48)
[2022-06-09] MEDS: CELECOXIB 100 MG CAPSULE PO SCH (09:49)
[2022-06-09] MEDS: MULTIVITAMINS (DAILY MVI) TABLET (FP) PO SCH (09:49)
[2022-06-09] MEDS: ASCORBIC ACID 500 MG TABLET (FP) PO SCH (09:49)
[2022-06-09] MEDS ORDERED: INSULIN (NOVOLOG) ASPART 100 UNITS/ML 10ML VIAL ONE (11:56)
[2022-06-09] MEDS ORDERED: MIDAZOLAM HCL 2 MG/2 ML SINGLE DOSE VIAL ONE (13:03)
[2022-06-09] MEDS ORDERED: FENTANYL CITRATE/PF 50 MCG/ML VIAL ONE (13:03)
[2022-06-09] MEDS ORDERED: ACETAMINOPHEN 325 MG TABLET (FP) PO PRN (14:37)
[2022-06-09] MEDS ORDERED: ONDANSETRON 4 MG/2 ML VIAL IVPUSH PRN (14:37)
[2022-06-09] MEDS ORDERED: oxyCODONE HCL 5 MG TABLET PO PRN (14:37)
[2022-06-09] MEDS ORDERED: LACTATED RINGERS SOLUTION 1,000 ML IV SCH (14:45)
[2022-06-09] MEDS: ATORVASTATIN CA 40 MG TABLET (FP) PO SCH (22:29)
[2022-06-10] MEDS: VANCOMYCIN/WATER FOR INJ (PEG) 1,000 MG/200 ML BAG IVPB SCH ×2 (04:01→16:23)
[2022-06-10] MEDS: INSULIN (LEVEMIR) 100 UNITS/ML UNITS SQ SCH (06:46)
[2022-06-10] MEDS: GABAPENTIN 300 MG CAPSULE PO SCH ×3 (06:46→21:37)
[2022-06-10] MEDS: INSULIN SLIDING SCALE (NOVOLOG) 1 VIAL SQ SCH ×4 (06:47→21:37)
[2022-06-10 07:24] LABS: BASO % 0.4 % (0-2.0); EOS % 3.7 % (0-4.5); HEMATOCRIT 27.9 % (35.4-49); HEMOGLOBIN 9.2 GM/dL (11.7-16.9); LYMPH % 13.5 % (8-40); MCH 26.6 pg (25.7-33.7); MCHC 32.8 g/dl (32.0-35.9); MEAN CELL VOLUME 80.9 fl (80-96); MONO % 7.7 % (3.8-10.2); NEUT % 74.7 % (42.8-82.8); PLATELET COUNT 360 10^3/uL (134-434); RBC 3.45 M/mm3 (4.00-5.60); RDW 14.6 % (11.9-15.9); WHITE BLOOD COUNT 11.1 K/mm3 (4.0-10.0)
[2022-06-10 07:50] LABS: BLOOD UREA NITROGEN 6.6 mg/dL (7-18); MAGNESIUM 2.1 mg/dL (1.8-2.4)
[2022-06-10 07:53] LABS: CREATININE 0.5 mg/dL (0.55-1.3)
[2022-06-10] MEDS: AMINO ACIDS/PROTEIN HYDROLYS 30 ML LIQUID.PKT PO SCH ×3 (09:40→16:58)
[2022-06-10] MEDS: CEFTRIAXONE 2 GM in DEXTROSE 5%-WATER 100 ML IVPB SCH (09:41)
[2022-06-10] MEDS: ENOXAPARIN NA (PORCINE) 40 MG/0.4 ML DISP.SYRIN SQ SCH (09:41)
[2022-06-10] MEDS: SENNOSIDES 8.6MG TABLET (FP) PO SCH (09:41)
[2022-06-10] MEDS: FAMOTIDINE 20 MG TABLET PO SCH ×2 (09:41→21:37)
[2022-06-10] MEDS: ASCORBIC ACID 500 MG TABLET (FP) PO SCH (09:41)
[2022-06-10] MEDS: MULTIVITAMINS (DAILY MVI) TABLET (FP) PO SCH (09:41)
[2022-06-10] MEDS: CELECOXIB 100 MG CAPSULE PO SCH (09:42)
[2022-06-10] MEDS: COLLAGENASE CLOSTRIDIUM HIST. 30 GRAMS TUBE TP SCH (11:38)
[2022-06-10] MEDS: SODIUM HYPOCHLORITE 0.25%- 473 ML BULK BOTTLE TP SCH (12:46)
[2022-06-10] MEDS ORDERED: VANCOMYCIN/WATER FOR INJ (PEG) 1,000 MG/200 ML BAG IVPB SCH (15:00)
[2022-06-10] MEDS: ATORVASTATIN CA 40 MG TABLET (FP) PO SCH (21:37)
[2022-06-11] MEDS: VANCOMYCIN/WATER FOR INJ (PEG) 1,000 MG/200 ML BAG IVPB SCH ×2 (04:36→16:39)
[2022-06-11] MEDS: GABAPENTIN 300 MG CAPSULE PO SCH ×3 (05:40→22:32)
[2022-06-11] MEDS: INSULIN (LEVEMIR) 100 UNITS/ML UNITS SQ SCH (06:55)
[2022-06-11] MEDS: INSULIN SLIDING SCALE (NOVOLOG) 1 VIAL SQ SCH ×4 (06:55→22:32)
[2022-06-11 08:42] LABS: BASO % 0.5 % (0-2.0); EOS % 6.6 % (0-4.5); HEMATOCRIT 29.5 % (35.4-49); HEMOGLOBIN 9.8 GM/dL (11.7-16.9); LYMPH % 18.3 % (8-40); MCH 26.9 pg (25.7-33.7); MCHC 33.4 g/dl (32.0-35.9); MEAN CELL VOLUME 80.7 fl (80-96); MEAN PLT VOLUME 6.6 fl (7.5-11.1); MONO % 8.4 % (3.8-10.2); NEUT % 66.2 % (42.8-82.8); PLATELET COUNT 381 10^3/uL (134-434); RBC 3.65 M/mm3 (4.00-5.60); RDW 14.7 % (11.9-15.9); WHITE BLOOD COUNT 7.9 K/mm3 (4.0-10.0)
[2022-06-11 09:50] LABS: BLOOD UREA NITROGEN 5.9 mg/dL (7-18)
[2022-06-11 09:51] LABS: MAGNESIUM 2.1 mg/dL (1.8-2.4)
[2022-06-11] MEDS: AMINO ACIDS/PROTEIN HYDROLYS 30 ML LIQUID.PKT PO SCH ×3 (09:52→17:05)
[2022-06-11] MEDS: COLLAGENASE CLOSTRIDIUM HIST. 30 GRAMS TUBE TP SCH (09:52)
[2022-06-11] MEDS: CEFTRIAXONE 2 GM in DEXTROSE 5%-WATER 100 ML IVPB SCH (09:52)
[2022-06-11] MEDS: ENOXAPARIN NA (PORCINE) 40 MG/0.4 ML DISP.SYRIN SQ SCH (09:52)
[2022-06-11] MEDS: SODIUM HYPOCHLORITE 0.25%- 473 ML BULK BOTTLE TP SCH (09:52)
[2022-06-11 09:53] LABS: CREATININE 0.5 mg/dL (0.55-1.3)
[2022-06-11] MEDS: MULTIVITAMINS (DAILY MVI) TABLET (FP) PO SCH (09:53)
[2022-06-11] MEDS: FAMOTIDINE 20 MG TABLET PO SCH ×2 (09:53→22:32)
[2022-06-11] MEDS: SENNOSIDES 8.6MG TABLET (FP) PO SCH (09:53)
[2022-06-11] MEDS: ASCORBIC ACID 500 MG TABLET (FP) PO SCH (09:53)
[2022-06-11] MEDS: CELECOXIB 100 MG CAPSULE PO SCH (09:53)
[2022-06-11] MEDS: ATORVASTATIN CA 40 MG TABLET (FP) PO SCH (22:32)
[2022-06-12] MEDS: VANCOMYCIN/WATER FOR INJ (PEG) 1,000 MG/200 ML BAG IVPB SCH ×2 (03:30→16:46)
[2022-06-12] MEDS: INSULIN (LEVEMIR) 100 UNITS/ML UNITS SQ SCH (06:39)
[2022-06-12] MEDS: GABAPENTIN 300 MG CAPSULE PO SCH ×3 (06:39→22:19)
[2022-06-12] MEDS: INSULIN SLIDING SCALE (NOVOLOG) 1 VIAL SQ SCH ×5 (06:39→22:19)
[2022-06-12] MEDS: SODIUM HYPOCHLORITE 0.25%- 473 ML BULK BOTTLE TP SCH ×2 (07:47→10:07)
[2022-06-12] MEDS: COLLAGENASE CLOSTRIDIUM HIST. 30 GRAMS TUBE TP SCH ×2 (07:48→10:07)
[2022-06-12] MEDS: CEFTRIAXONE 2 GM in DEXTROSE 5%-WATER 100 ML IVPB SCH (10:02)
[2022-06-12] MEDS: SENNOSIDES 8.6MG TABLET (FP) PO SCH (10:05)
[2022-06-12] MEDS: AMINO ACIDS/PROTEIN HYDROLYS 30 ML LIQUID.PKT PO SCH ×3 (10:05→16:46)
[2022-06-12] MEDS: ZINC SULFATE 220 MG CAPSULE (FP) PO SCH (10:06)
[2022-06-12] MEDS: FAMOTIDINE 20 MG TABLET PO SCH ×2 (10:06→22:19)
[2022-06-12] MEDS: ASCORBIC ACID 500 MG TABLET (FP) PO SCH (10:06)
[2022-06-12] MEDS: ENOXAPARIN NA (PORCINE) 40 MG/0.4 ML DISP.SYRIN SQ SCH (10:06)
[2022-06-12] MEDS: MULTIVITAMINS (DAILY MVI) TABLET (FP) PO SCH (10:06)
[2022-06-12] MEDS: CELECOXIB 100 MG CAPSULE PO SCH (10:07)
[2022-06-12 11:42] LABS: BASO % 0.4 % (0-2.0); EOS % 6.7 % (0-4.5); HEMATOCRIT 31.3 % (35.4-49); HEMOGLOBIN 10.4 GM/dL (11.7-16.9); LYMPH % 18.2 % (8-40); MCH 26.9 pg (25.7-33.7); MCHC 33.1 g/dl (32.0-35.9); MEAN CELL VOLUME 81.1 fl (80-96); MEAN PLT VOLUME 6.5 fl (7.5-11.1); NEUT % 65.7 % (42.8-82.8); PLATELET COUNT 437 10^3/uL (134-434); RBC 3.85 M/mm3 (4.00-5.60); RDW 14.8 % (11.9-15.9); WHITE BLOOD COUNT 6.9 K/mm3 (4.0-10.0)
[2022-06-12 12:16] LABS: BLOOD UREA NITROGEN 4.9 mg/dL (7-18)
[2022-06-12 12:19] LABS: CREATININE 0.5 mg/dL (0.55-1.3)
[2022-06-12 12:20] LABS: PHOSPHOROUS 2.8 mg/dL (2.5-4.9)
[2022-06-12] MEDS: ATORVASTATIN CA 40 MG TABLET (FP) PO SCH (22:18)
[2022-06-13] MEDS: VANCOMYCIN/WATER FOR INJ (PEG) 1,000 MG/200 ML BAG IVPB SCH (03:05)
[2022-06-13] MEDS: GABAPENTIN 300 MG CAPSULE PO SCH ×3 (06:01→22:44)
[2022-06-13] MEDS: INSULIN SLIDING SCALE (NOVOLOG) 1 VIAL SQ SCH ×4 (06:02→22:44)
[2022-06-13] MEDS: INSULIN (LEVEMIR) 100 UNITS/ML UNITS SQ SCH (06:02)
[2022-06-13 09:06] LABS: BASO % 0.9 % (0-2.0); EOS % 5.9 % (0-4.5); HEMATOCRIT 31.6 % (35.4-49); HEMOGLOBIN 10.5 GM/dL (11.7-16.9); LYMPH % 21.5 % (8-40); MCH 26.9 pg (25.7-33.7); MCHC 33.2 g/dl (32.0-35.9); MEAN PLT VOLUME 6.4 fl (7.5-11.1); MONO % 11.5 % (3.8-10.2); NEUT % 60.2 % (42.8-82.8); PLATELET COUNT 474 10^3/uL (134-434); RDW 14.6 % (11.9-15.9); WHITE BLOOD COUNT 9.3 K/mm3 (4.0-10.0)
[2022-06-13 09:31] LABS: BLOOD UREA NITROGEN 5.6 mg/dL (7-18)
[2022-06-13 09:32] LABS: MAGNESIUM 2.1 mg/dL (1.8-2.4)
[2022-06-13 09:34] LABS: CREATININE 0.5 mg/dL (0.55-1.3)
[2022-06-13] MEDS: ZINC SULFATE 220 MG CAPSULE (FP) PO SCH (10:17)
[2022-06-13] MEDS: MULTIVITAMINS (DAILY MVI) TABLET (FP) PO SCH (10:17)
[2022-06-13] MEDS: ENOXAPARIN NA (PORCINE) 40 MG/0.4 ML DISP.SYRIN SQ SCH (10:17)
[2022-06-13] MEDS: AMINO ACIDS/PROTEIN HYDROLYS 30 ML LIQUID.PKT PO SCH ×3 (10:17→18:20)
[2022-06-13] MEDS: FAMOTIDINE 20 MG TABLET PO SCH ×2 (10:17→22:44)
[2022-06-13] MEDS: CEFTRIAXONE 2 GM in DEXTROSE 5%-WATER 100 ML IVPB SCH (10:17)
[2022-06-13] MEDS: ASCORBIC ACID 500 MG TABLET (FP) PO SCH (10:17)
[2022-06-13] MEDS: SENNOSIDES 8.6MG TABLET (FP) PO SCH (10:17)
[2022-06-13] MEDS: CELECOXIB 100 MG CAPSULE PO SCH (10:22)
[2022-06-13] MEDS: COLLAGENASE CLOSTRIDIUM HIST. 30 GRAMS TUBE TP SCH (14:40)
[2022-06-13] MEDS: SODIUM HYPOCHLORITE 0.25%- 473 ML BULK BOTTLE TP SCH (14:40)
[2022-06-13] MEDS: ATORVASTATIN CA 40 MG TABLET (FP) PO SCH (22:44)
[2022-06-14] MEDS: GABAPENTIN 300 MG CAPSULE PO SCH ×3 (06:34→22:06)
[2022-06-14] MEDS: INSULIN SLIDING SCALE (NOVOLOG) 1 VIAL SQ SCH ×4 (06:35→22:12)
[2022-06-14] MEDS: INSULIN (LEVEMIR) 100 UNITS/ML UNITS SQ SCH (06:36)
[2022-06-14 10:11] LABS: BASO % 0.5 % (0-2.0); EOS % 4.3 % (0-4.5); HEMATOCRIT 31.9 % (35.4-49); HEMOGLOBIN 10.6 GM/dL (11.7-16.9); MCH 27.2 pg (25.7-33.7); MCHC 33.3 g/dl (32.0-35.9); MEAN CELL VOLUME 81.6 fl (80-96); MEAN PLT VOLUME 6.2 fl (7.5-11.1); MONO % 8.8 % (3.8-10.2); NEUT % 63.4 % (42.8-82.8); PLATELET COUNT 467 10^3/uL (134-434); RBC 3.91 M/mm3 (4.00-5.60); RDW 14.4 % (11.9-15.9); WHITE BLOOD COUNT 9.3 K/mm3 (4.0-10.0)
[2022-06-14 10:28] LABS: BLOOD UREA NITROGEN 5.7 mg/dL (7-18)
[2022-06-14] MEDS: SENNOSIDES 8.6MG TABLET (FP) PO SCH (10:30)
[2022-06-14] MEDS: MULTIVITAMINS (DAILY MVI) TABLET (FP) PO SCH (10:30)
[2022-06-14] MEDS: ZINC SULFATE 220 MG CAPSULE (FP) PO SCH (10:30)
[2022-06-14] MEDS: SODIUM HYPOCHLORITE 0.25%- 473 ML BULK BOTTLE TP SCH (10:31)
[2022-06-14] MEDS: FAMOTIDINE 20 MG TABLET PO SCH ×2 (10:31→22:06)
[2022-06-14] MEDS: COLLAGENASE CLOSTRIDIUM HIST. 30 GRAMS TUBE TP SCH (10:31)
[2022-06-14] MEDS: ASCORBIC ACID 500 MG TABLET (FP) PO SCH (10:31)
[2022-06-14 10:32] LABS: CALCIUM 8.5 mg/dL (8.5-10.1); CREATININE 0.5 mg/dL (0.55-1.3)
[2022-06-14] MEDS: CELECOXIB 100 MG CAPSULE PO SCH (10:32)
[2022-06-14] MEDS: AMINO ACIDS/PROTEIN HYDROLYS 30 ML LIQUID.PKT PO SCH ×3 (10:32→16:48)
[2022-06-14] MEDS: ENOXAPARIN NA (PORCINE) 40 MG/0.4 ML DISP.SYRIN SQ SCH (10:32)
[2022-06-14 10:33] LABS: MAGNESIUM 2.1 mg/dL (1.8-2.4)
[2022-06-14] MEDS: INSULIN (NOVOLOG) ASPART 100 UNITS/ML 10ML VIAL SQ SCH ×3 (11:52→16:48)
[2022-06-14] MEDS: CEFTRIAXONE 2 GM in DEXTROSE 5%-WATER 100 ML IVPB SCH (15:12)
[2022-06-14] MEDS: AMPICILLIN - 2 GM in SODIUM CHLORIDE 100 ML IVPB SCH ×3 (15:36→22:06)
[2022-06-14] MEDS: ATORVASTATIN CA 40 MG TABLET (FP) PO SCH (22:06)
[2022-06-15] MEDS: AMPICILLIN - 2 GM in SODIUM CHLORIDE 100 ML IVPB SCH ×6 (02:29→21:02)
[2022-06-15] MEDS: GABAPENTIN 300 MG CAPSULE PO SCH ×3 (07:11→21:02)
[2022-06-15] MEDS: INSULIN (NOVOLOG) ASPART 100 UNITS/ML 10ML VIAL SQ SCH ×3 (07:11→17:45)
[2022-06-15] MEDS: INSULIN (LEVEMIR) 100 UNITS/ML UNITS SQ SCH (07:11)
[2022-06-15] MEDS: INSULIN SLIDING SCALE (NOVOLOG) 1 VIAL SQ SCH ×4 (07:20→21:02)
[2022-06-15 10:03] LABS: BASO % 0.6 % (0-2.0); EOS % 4.5 % (0-4.5); HEMATOCRIT 34.4 % (35.4-49); HEMOGLOBIN 11.3 GM/dL (11.7-16.9); MCH 26.7 pg (25.7-33.7); MCHC 32.9 g/dl (32.0-35.9); MEAN CELL VOLUME 81.2 fl (80-96); MEAN PLT VOLUME 6.4 fl (7.5-11.1); MONO % 7.7 % (3.8-10.2); NEUT % 61.2 % (42.8-82.8); PLATELET COUNT 481 10^3/uL (134-434); RBC 4.24 M/mm3 (4.00-5.60); RDW 14.6 % (11.9-15.9); WHITE BLOOD COUNT 9.8 K/mm3 (4.0-10.0)
[2022-06-15 10:16] LABS: CALCIUM 8.6 mg/dL (8.5-10.1)
[2022-06-15 10:17] LABS: BLOOD UREA NITROGEN 5.5 mg/dL (7-18); MAGNESIUM 2.2 mg/dL (1.8-2.4)
[2022-06-15 10:20] LABS: CREATININE 0.4 mg/dL (0.55-1.3); PHOSPHOROUS 3.2 mg/dL (2.5-4.9)
[2022-06-15] MEDS: AMINO ACIDS/PROTEIN HYDROLYS 30 ML LIQUID.PKT PO SCH ×3 (11:33→17:44)
[2022-06-15] MEDS: SENNOSIDES 8.6MG TABLET (FP) PO SCH (11:34)
[2022-06-15] MEDS: FAMOTIDINE 20 MG TABLET PO SCH ×2 (11:34→21:02)
[2022-06-15] MEDS: ZINC SULFATE 220 MG CAPSULE (FP) PO SCH (11:34)
[2022-06-15] MEDS: ASCORBIC ACID 500 MG TABLET (FP) PO SCH (11:34)
[2022-06-15] MEDS: CELECOXIB 100 MG CAPSULE PO SCH (11:36)
[2022-06-15] MEDS: ENOXAPARIN NA (PORCINE) 40 MG/0.4 ML DISP.SYRIN SQ SCH (11:36)
[2022-06-15] MEDS: SODIUM HYPOCHLORITE 0.25%- 473 ML BULK BOTTLE TP SCH (11:36)
[2022-06-15] MEDS: MULTIVITAMINS (DAILY MVI) TABLET (FP) PO SCH (11:37)
[2022-06-15] MEDS: COLLAGENASE CLOSTRIDIUM HIST. 30 GRAMS TUBE TP SCH (14:28)
[2022-06-15] MEDS: ATORVASTATIN CA 40 MG TABLET (FP) PO SCH (21:02)
[2022-06-16] MEDS: AMPICILLIN - 2 GM in SODIUM CHLORIDE 100 ML IVPB SCH ×6 (02:49→23:00)
[2022-06-16] MEDS: GABAPENTIN 300 MG CAPSULE PO SCH ×3 (06:28→23:01)
[2022-06-16] MEDS: INSULIN (LEVEMIR) 100 UNITS/ML UNITS SQ SCH (06:45)
[2022-06-16] MEDS: INSULIN (NOVOLOG) ASPART 100 UNITS/ML 10ML VIAL SQ SCH ×3 (07:00→16:47)
[2022-06-16] MEDS: INSULIN SLIDING SCALE (NOVOLOG) 1 VIAL SQ SCH ×4 (07:00→23:03)
[2022-06-16] MEDS: AMINO ACIDS/PROTEIN HYDROLYS 30 ML LIQUID.PKT PO SCH ×3 (08:38→17:15)
[2022-06-16 09:08] LABS: HEMATOCRIT 32.1 % (35.4-49); HEMOGLOBIN 10.6 GM/dL (11.7-16.9); MCH 26.8 pg (25.7-33.7); MCHC 32.9 g/dl (32.0-35.9); MEAN CELL VOLUME 81.4 fl (80-96); PLATELET COUNT 442 10^3/uL (134-434); RBC 3.94 M/mm3 (4.00-5.60); RDW 15.2 % (11.9-15.9); WHITE BLOOD COUNT 10.1 K/mm3 (4.0-10.0)
[2022-06-16 09:26] LABS: ALBUMIN 2.1 g/dl (3.4-5.0)
[2022-06-16 09:27] LABS: BLOOD UREA NITROGEN 5.2 mg/dL (7-18)
[2022-06-16 09:29] LABS: CREATININE 0.5 mg/dL (0.55-1.3); PHOSPHOROUS 2.9 mg/dL (2.5-4.9)
[2022-06-16 09:31] LABS: BILIRUBIN,TOTAL 0.3 mg/dL (0.2-1); TOT PROT 6.9 g/dl (6.4-8.2)
[2022-06-16] MEDS: CELECOXIB 100 MG CAPSULE PO SCH (09:31)
[2022-06-16] MEDS: FAMOTIDINE 20 MG TABLET PO SCH ×2 (09:32→23:00)
[2022-06-16] MEDS: ZINC SULFATE 220 MG CAPSULE (FP) PO SCH (09:32)
[2022-06-16] MEDS: SENNOSIDES 8.6MG TABLET (FP) PO SCH (09:32)
[2022-06-16] MEDS: MULTIVITAMINS (DAILY MVI) TABLET (FP) PO SCH (09:32)
[2022-06-16] MEDS: ASCORBIC ACID 500 MG TABLET (FP) PO SCH (09:33)
[2022-06-16] MEDS: ENOXAPARIN NA (PORCINE) 40 MG/0.4 ML DISP.SYRIN SQ SCH (09:34)
[2022-06-16] MEDS: SODIUM HYPOCHLORITE 0.25%- 473 ML BULK BOTTLE TP SCH (14:10)
[2022-06-16] MEDS: COLLAGENASE CLOSTRIDIUM HIST. 30 GRAMS TUBE TP SCH (14:10)
[2022-06-16] MEDS ORDERED: INSULIN (NOVOLOG) ASPART 100 UNITS/ML 10ML VIAL ONE (17:00)
[2022-06-16] MEDS: ATORVASTATIN CA 40 MG TABLET (FP) PO SCH (23:00)
[2022-06-17] MEDS: AMPICILLIN - 2 GM in SODIUM CHLORIDE 100 ML IVPB SCH ×6 (02:33→22:54)
[2022-06-17] MEDS: GABAPENTIN 300 MG CAPSULE PO SCH ×3 (06:58→22:54)
[2022-06-17] MEDS: INSULIN (LEVEMIR) 100 UNITS/ML UNITS SQ SCH (07:00)
[2022-06-17] MEDS: INSULIN SLIDING SCALE (NOVOLOG) 1 VIAL SQ SCH ×4 (07:01→23:03)
[2022-06-17] MEDS: INSULIN (NOVOLOG) ASPART 100 UNITS/ML 10ML VIAL SQ SCH ×3 (07:01→16:29)
[2022-06-17] MEDS: AMINO ACIDS/PROTEIN HYDROLYS 30 ML LIQUID.PKT PO SCH ×3 (09:43→16:54)
[2022-06-17] MEDS: CELECOXIB 100 MG CAPSULE PO SCH (09:44)
[2022-06-17] MEDS: ASCORBIC ACID 500 MG TABLET (FP) PO SCH (09:45)
[2022-06-17] MEDS: FAMOTIDINE 20 MG TABLET PO SCH ×2 (09:45→22:54)
[2022-06-17] MEDS: SENNOSIDES 8.6MG TABLET (FP) PO SCH (09:45)
[2022-06-17] MEDS: MULTIVITAMINS (DAILY MVI) TABLET (FP) PO SCH (09:45)
[2022-06-17 09:46] LABS: HEMATOCRIT 30.6 % (35.4-49); HEMOGLOBIN 10.3 GM/dL (11.7-16.9); MCH 27.6 pg (25.7-33.7); MCHC 33.6 g/dl (32.0-35.9); MEAN PLT VOLUME 5.9 fl (7.5-11.1); PLATELET COUNT 396 10^3/uL (134-434); RBC 3.73 M/mm3 (4.00-5.60); RDW 15.3 % (11.9-15.9); WHITE BLOOD COUNT 10.8 K/mm3 (4.0-10.0)
[2022-06-17] MEDS: ZINC SULFATE 220 MG CAPSULE (FP) PO SCH (09:46)
[2022-06-17 12:36] LABS: BILIRUBIN,TOTAL 0.5 mg/dL (0.2-1); BLOOD UREA NITROGEN 6.2 mg/dL (7-18); CALCIUM 7.8 mg/dL (8.5-10.1); CREATININE 0.6 mg/dL (0.55-1.3); PHOSPHOROUS 2.9 mg/dL (2.5-4.9); TOT PROT 6.7 g/dl (6.4-8.2)
[2022-06-17] MEDS: SODIUM HYPOCHLORITE 0.25%- 473 ML BULK BOTTLE TP SCH (16:27)
[2022-06-17] MEDS: COLLAGENASE CLOSTRIDIUM HIST. 30 GRAMS TUBE TP SCH (16:27)
[2022-06-17] MEDS: ENOXAPARIN NA (PORCINE) 40 MG/0.4 ML DISP.SYRIN SQ SCH (16:30)
[2022-06-17] MEDS: ATORVASTATIN CA 40 MG TABLET (FP) PO SCH (22:54)
[2022-06-18] MEDS: AMPICILLIN - 2 GM in SODIUM CHLORIDE 100 ML IVPB SCH ×6 (03:02→22:32)
[2022-06-18] MEDS: INSULIN SLIDING SCALE (NOVOLOG) 1 VIAL SQ SCH ×4 (06:24→23:40)
[2022-06-18] MEDS: GABAPENTIN 300 MG CAPSULE PO SCH ×3 (06:24→22:32)
[2022-06-18] MEDS: INSULIN (LEVEMIR) 100 UNITS/ML UNITS SQ SCH (06:25)
[2022-06-18] MEDS: INSULIN (NOVOLOG) ASPART 100 UNITS/ML 10ML VIAL SQ SCH ×3 (06:25→16:56)
[2022-06-18] MEDS: AMINO ACIDS/PROTEIN HYDROLYS 30 ML LIQUID.PKT PO SCH ×3 (08:37→17:18)
[2022-06-18] MEDS: MULTIVITAMINS (DAILY MVI) TABLET (FP) PO SCH (10:24)
[2022-06-18] MEDS: ENOXAPARIN NA (PORCINE) 40 MG/0.4 ML DISP.SYRIN SQ SCH (10:24)
[2022-06-18] MEDS: COLLAGENASE CLOSTRIDIUM HIST. 30 GRAMS TUBE TP SCH (10:25)
[2022-06-18] MEDS: SENNOSIDES 8.6MG TABLET (FP) PO SCH (10:25)
[2022-06-18] MEDS: FAMOTIDINE 20 MG TABLET PO SCH ×2 (10:25→22:32)
[2022-06-18] MEDS: ASCORBIC ACID 500 MG TABLET (FP) PO SCH (10:25)
[2022-06-18] MEDS: ZINC SULFATE 220 MG CAPSULE (FP) PO SCH (10:25)
[2022-06-18] MEDS: CEFTRIAXONE 1 GM in DEXTROSE 5%-WATER - 50 ML IVPB SCH (10:26)
[2022-06-18] MEDS: SODIUM HYPOCHLORITE 0.25%- 473 ML BULK BOTTLE TP SCH (10:26)
[2022-06-18] MEDS: CELECOXIB 100 MG CAPSULE PO SCH (10:26)
[2022-06-18 11:15] LABS: HEMOGLOBIN 10.5 GM/dL (11.7-16.9); MEAN PLT VOLUME 6.2 fl (7.5-11.1); PLATELET COUNT 421 10^3/uL (134-434); RDW 15.6 % (11.9-15.9); WHITE BLOOD COUNT 9.2 K/mm3 (4.0-10.0)
[2022-06-18 11:34] LABS: ALBUMIN 2.1 g/dl (3.4-5.0); BLOOD UREA NITROGEN 5.5 mg/dL (7-18); MAGNESIUM 1.7 mg/dL (1.8-2.4)
[2022-06-18 11:37] LABS: CREATININE 0.5 mg/dL (0.55-1.3); PHOSPHOROUS 2.8 mg/dL (2.5-4.9)
[2022-06-18 11:38] LABS: TOT PROT 6.9 g/dl (6.4-8.2)
[2022-06-18 11:39] LABS: BILIRUBIN,TOTAL 0.4 mg/dL (0.2-1); CALCIUM 7.7 mg/dL (8.5-10.1)
[2022-06-18] MEDS ORDERED: MAGNESIUM SULF 50% (8.12 MEQ/2 ML-1 GM VIAL) IVPB ONE (15:20)
[2022-06-18] MEDS: ATORVASTATIN CA 40 MG TABLET (FP) PO SCH (22:32)
[2022-06-19] MEDS: AMPICILLIN - 2 GM in SODIUM CHLORIDE 100 ML IVPB SCH ×6 (01:30→22:19)
[2022-06-19] MEDS: GABAPENTIN 300 MG CAPSULE PO SCH ×3 (05:34→22:20)
[2022-06-19] MEDS: INSULIN (LEVEMIR) 100 UNITS/ML UNITS SQ SCH (06:03)
[2022-06-19] MEDS: INSULIN SLIDING SCALE (NOVOLOG) 1 VIAL SQ SCH ×4 (06:44→22:22)
[2022-06-19] MEDS: INSULIN (NOVOLOG) ASPART 100 UNITS/ML 10ML VIAL SQ SCH ×5 (06:50→16:16)
[2022-06-19] MEDS ORDERED: INSULIN (LEVEMIR) 100 UNITS/ML UNITS SQ ONE (07:48)
[2022-06-19] MEDS: AMINO ACIDS/PROTEIN HYDROLYS 30 ML LIQUID.PKT PO SCH ×3 (09:22→17:53)
[2022-06-19 10:07] LABS: HEMATOCRIT 30.6 % (35.4-49); MCH 26.8 pg (25.7-33.7); MCHC 32.6 g/dl (32.0-35.9); MEAN CELL VOLUME 82.1 fl (80-96); PLATELET COUNT 365 10^3/uL (134-434); RBC 3.73 M/mm3 (4.00-5.60); RDW 15.5 % (11.9-15.9); WHITE BLOOD COUNT 8.8 K/mm3 (4.0-10.0)
[2022-06-19] MEDS: CEFTRIAXONE 1 GM in DEXTROSE 5%-WATER - 50 ML IVPB SCH (10:15)
[2022-06-19] MEDS: SENNOSIDES 8.6MG TABLET (FP) PO SCH (10:16)
[2022-06-19] MEDS: ZINC SULFATE 220 MG CAPSULE (FP) PO SCH (10:16)
[2022-06-19] MEDS: ENOXAPARIN NA (PORCINE) 40 MG/0.4 ML DISP.SYRIN SQ SCH (10:16)
[2022-06-19] MEDS: CELECOXIB 100 MG CAPSULE PO SCH (10:16)
[2022-06-19] MEDS: MULTIVITAMINS (DAILY MVI) TABLET (FP) PO SCH (10:16)
[2022-06-19] MEDS: FAMOTIDINE 20 MG TABLET PO SCH ×2 (10:16→22:20)
[2022-06-19] MEDS: ASCORBIC ACID 500 MG TABLET (FP) PO SCH (10:16)
[2022-06-19 10:22] LABS: MEAN PLT VOLUME 5.7 fl (7.5-11.1)
[2022-06-19 10:40] LABS: CALCIUM 8.1 mg/dL (8.5-10.1)
[2022-06-19 10:41] LABS: BLOOD UREA NITROGEN 4.7 mg/dL (7-18)
[2022-06-19 10:44] LABS: CREATININE 0.5 mg/dL (0.55-1.3); PHOSPHOROUS 2.7 mg/dL (2.5-4.9)
[2022-06-19 10:45] LABS: BILIRUBIN,TOTAL 0.3 mg/dL (0.2-1); TOT PROT 6.5 g/dl (6.4-8.2)
[2022-06-19] MEDS: COLLAGENASE CLOSTRIDIUM HIST. 30 GRAMS TUBE TP SCH (12:17)
[2022-06-19] MEDS: SODIUM HYPOCHLORITE 0.25%- 473 ML BULK BOTTLE TP SCH (12:17)
[2022-06-19] MEDS: ATORVASTATIN CA 40 MG TABLET (FP) PO SCH (22:19)
[2022-06-20] MEDS: AMPICILLIN - 2 GM in SODIUM CHLORIDE 100 ML IVPB SCH ×6 (02:52→22:24)
[2022-06-20] MEDS: INSULIN (NOVOLOG) ASPART 100 UNITS/ML 10ML VIAL SQ SCH ×3 (06:21→17:07)
[2022-06-20] MEDS: INSULIN SLIDING SCALE (NOVOLOG) 1 VIAL SQ SCH ×4 (06:21→22:25)
[2022-06-20] MEDS: GABAPENTIN 300 MG CAPSULE PO SCH ×3 (06:21→22:25)
[2022-06-20] MEDS: INSULIN (LEVEMIR) 100 UNITS/ML UNITS SQ SCH (06:21)
[2022-06-20] MEDS: CEFTRIAXONE 1 GM in DEXTROSE 5%-WATER - 50 ML IVPB SCH (09:27)
[2022-06-20] MEDS: AMINO ACIDS/PROTEIN HYDROLYS 30 ML LIQUID.PKT PO SCH ×3 (09:27→18:25)
[2022-06-20] MEDS: SENNOSIDES 8.6MG TABLET (FP) PO SCH (09:28)
[2022-06-20] MEDS: ZINC SULFATE 220 MG CAPSULE (FP) PO SCH (09:28)
[2022-06-20] MEDS: ASCORBIC ACID 500 MG TABLET (FP) PO SCH (09:28)
[2022-06-20] MEDS: ENOXAPARIN NA (PORCINE) 40 MG/0.4 ML DISP.SYRIN SQ SCH (09:28)
[2022-06-20] MEDS: MULTIVITAMINS (DAILY MVI) TABLET (FP) PO SCH (09:28)
[2022-06-20] MEDS: FAMOTIDINE 20 MG TABLET PO SCH ×2 (09:29→22:26)
[2022-06-20] MEDS: SODIUM HYPOCHLORITE 0.25%- 473 ML BULK BOTTLE TP SCH (09:35)
[2022-06-20] MEDS: COLLAGENASE CLOSTRIDIUM HIST. 30 GRAMS TUBE TP SCH (09:35)
[2022-06-20 09:52] LABS: HEMATOCRIT 30.5 % (35.4-49); HEMOGLOBIN 10.2 GM/dL (11.7-16.9); MCH 27.1 pg (25.7-33.7); MCHC 33.5 g/dl (32.0-35.9); MEAN CELL VOLUME 80.9 fl (80-96); PLATELET COUNT 352 10^3/uL (134-434); RBC 3.77 M/mm3 (4.00-5.60); RDW 15.5 % (11.9-15.9); WHITE BLOOD COUNT 7.7 K/mm3 (4.0-10.0)
[2022-06-20 10:14] LABS: CALCIUM 7.9 mg/dL (8.5-10.1)
[2022-06-20 10:15] LABS: MAGNESIUM 1.9 mg/dL (1.8-2.4)
[2022-06-20 10:18] LABS: CREATININE 0.4 mg/dL (0.55-1.3); PHOSPHOROUS 2.5 mg/dL (2.5-4.9)
[2022-06-20 10:19] LABS: BILIRUBIN,TOTAL 0.2 mg/dL (0.2-1); TOT PROT 6.6 g/dl (6.4-8.2)
[2022-06-20] MEDS: CELECOXIB 100 MG CAPSULE PO SCH (11:53)
[2022-06-20] MEDS: ATORVASTATIN CA 40 MG TABLET (FP) PO SCH (22:24)
[2022-06-21] MEDS: AMPICILLIN - 2 GM in SODIUM CHLORIDE 100 ML IVPB SCH ×3 (02:53→11:37)
[2022-06-21] MEDS: GABAPENTIN 300 MG CAPSULE PO SCH ×3 (05:58→22:58)
[2022-06-21] MEDS: INSULIN (NOVOLOG) ASPART 100 UNITS/ML 10ML VIAL SQ SCH ×3 (05:59→16:44)
[2022-06-21] MEDS: INSULIN SLIDING SCALE (NOVOLOG) 1 VIAL SQ SCH ×4 (05:59→23:01)
[2022-06-21] MEDS: INSULIN (LEVEMIR) 100 UNITS/ML UNITS SQ SCH (05:59)
[2022-06-21] MEDS: AMINO ACIDS/PROTEIN HYDROLYS 30 ML LIQUID.PKT PO SCH ×3 (11:38→17:49)
[2022-06-21] MEDS: CEFTRIAXONE 1 GM in DEXTROSE 5%-WATER - 50 ML IVPB SCH (11:38)
[2022-06-21] MEDS: CELECOXIB 100 MG CAPSULE PO SCH (11:39)
[2022-06-21] MEDS: MULTIVITAMINS (DAILY MVI) TABLET (FP) PO SCH (11:39)
[2022-06-21] MEDS: FAMOTIDINE 20 MG TABLET PO SCH ×2 (11:39→22:58)
[2022-06-21] MEDS: ENOXAPARIN NA (PORCINE) 40 MG/0.4 ML DISP.SYRIN SQ SCH (11:39)
[2022-06-21] MEDS: ZINC SULFATE 220 MG CAPSULE (FP) PO SCH (11:40)
[2022-06-21] MEDS: SODIUM HYPOCHLORITE 0.25%- 473 ML BULK BOTTLE TP SCH (11:40)
[2022-06-21] MEDS: SENNOSIDES 8.6MG TABLET (FP) PO SCH (11:40)
[2022-06-21] MEDS: ASCORBIC ACID 500 MG TABLET (FP) PO SCH (11:40)
[2022-06-21] MEDS: COLLAGENASE CLOSTRIDIUM HIST. 30 GRAMS TUBE TP SCH (16:29)
[2022-06-21] MEDS: ATORVASTATIN CA 40 MG TABLET (FP) PO SCH (22:58)
[2022-06-22] MEDS: INSULIN (LEVEMIR) 100 UNITS/ML UNITS SQ SCH (06:38)
[2022-06-22] MEDS: INSULIN (NOVOLOG) ASPART 100 UNITS/ML 10ML VIAL SQ SCH ×3 (06:38→17:18)
[2022-06-22] MEDS: INSULIN SLIDING SCALE (NOVOLOG) 1 VIAL SQ SCH ×4 (06:38→23:07)
[2022-06-22] MEDS: GABAPENTIN 300 MG CAPSULE PO SCH ×3 (06:38→22:10)
[2022-06-22] MEDS: AMINO ACIDS/PROTEIN HYDROLYS 30 ML LIQUID.PKT PO SCH ×3 (09:30→17:44)
[2022-06-22] MEDS ORDERED: AMPICILLIN SODIUM 250 MG VIAL IVPUSH SCH (10:15)
[2022-06-22] MEDS: ENOXAPARIN NA (PORCINE) 40 MG/0.4 ML DISP.SYRIN SQ SCH (11:07)
[2022-06-22] MEDS: AMPICILLIN - 2 GM in SODIUM CHLORIDE 100 ML IVPB SCH ×4 (11:07→22:09)
[2022-06-22] MEDS: CEFTRIAXONE 1 GM in DEXTROSE 5%-WATER - 50 ML IVPB SCH (11:08)
[2022-06-22] MEDS: SENNOSIDES 8.6MG TABLET (FP) PO SCH (11:10)
[2022-06-22] MEDS: FAMOTIDINE 20 MG TABLET PO SCH ×2 (11:10→22:10)
[2022-06-22] MEDS: ZINC SULFATE 220 MG CAPSULE (FP) PO SCH (11:10)
[2022-06-22] MEDS: ASCORBIC ACID 500 MG TABLET (FP) PO SCH (11:10)
[2022-06-22] MEDS: CELECOXIB 100 MG CAPSULE PO SCH (11:11)
[2022-06-22] MEDS: MULTIVITAMINS (DAILY MVI) TABLET (FP) PO SCH (11:11)
[2022-06-22] MEDS: SODIUM HYPOCHLORITE 0.25%- 473 ML BULK BOTTLE TP SCH (11:14)
[2022-06-22] MEDS: COLLAGENASE CLOSTRIDIUM HIST. 30 GRAMS TUBE TP SCH (11:15)
[2022-06-22] MEDS ORDERED: INSULIN (LEVEMIR) 100 UNITS/ML UNITS SQ ONE (18:11)
[2022-06-22] MEDS ORDERED: INSULIN (NOVOLOG) ASPART 100 UNITS/ML 10ML VIAL ONE (18:11)
[2022-06-22] MEDS: ATORVASTATIN CA 40 MG TABLET (FP) PO SCH (22:10)
[2022-06-23] MEDS: AMPICILLIN - 2 GM in SODIUM CHLORIDE 100 ML IVPB SCH ×6 (02:06→22:09)
[2022-06-23] MEDS: GABAPENTIN 300 MG CAPSULE PO SCH ×3 (05:53→22:09)
[2022-06-23] MEDS: INSULIN SLIDING SCALE (NOVOLOG) 1 VIAL SQ SCH ×4 (06:02→22:16)
[2022-06-23] MEDS: INSULIN (LEVEMIR) 100 UNITS/ML UNITS SQ SCH (06:02)
[2022-06-23] MEDS: INSULIN (NOVOLOG) ASPART 100 UNITS/ML 10ML VIAL SQ SCH ×3 (06:03→17:47)
[2022-06-23 08:34] LABS: HEMATOCRIT 30.4 % (35.4-49); HEMOGLOBIN 10.2 GM/dL (11.7-16.9); MCH 27.4 pg (25.7-33.7); MCHC 33.4 g/dl (32.0-35.9); MEAN PLT VOLUME 6.5 fl (7.5-11.1); PLATELET COUNT 364 10^3/uL (134-434); RBC 3.71 M/mm3 (4.00-5.60); RDW 15.7 % (11.9-15.9); WHITE BLOOD COUNT 8.6 K/mm3 (4.0-10.0)
[2022-06-23 08:52] LABS: ALBUMIN 2.2 g/dl (3.4-5.0); CALCIUM 8.3 mg/dL (8.5-10.1)
[2022-06-23 08:53] LABS: MAGNESIUM 1.9 mg/dL (1.8-2.4)
[2022-06-23 08:54] LABS: CREATININE 0.5 mg/dL (0.55-1.3); PHOSPHOROUS 3.2 mg/dL (2.5-4.9)
[2022-06-23 08:55] LABS: BILIRUBIN,TOTAL 0.8 mg/dL (0.2-1)
[2022-06-23] MEDS: CEFTRIAXONE 1 GM in DEXTROSE 5%-WATER - 50 ML IVPB SCH (11:16)
[2022-06-23] MEDS: SENNOSIDES 8.6MG TABLET (FP) PO SCH (11:20)
[2022-06-23] MEDS: MULTIVITAMINS (DAILY MVI) TABLET (FP) PO SCH (11:20)
[2022-06-23] MEDS: ZINC SULFATE 220 MG CAPSULE (FP) PO SCH (11:20)
[2022-06-23] MEDS: ASCORBIC ACID 500 MG TABLET (FP) PO SCH (11:20)
[2022-06-23] MEDS: ENOXAPARIN NA (PORCINE) 40 MG/0.4 ML DISP.SYRIN SQ SCH (11:21)
[2022-06-23] MEDS: FAMOTIDINE 20 MG TABLET PO SCH ×2 (11:21→22:09)
[2022-06-23] MEDS: CELECOXIB 100 MG CAPSULE PO SCH (11:22)
[2022-06-23] MEDS: AMINO ACIDS/PROTEIN HYDROLYS 30 ML LIQUID.PKT PO SCH ×3 (11:23→17:47)
[2022-06-23] MEDS: COLLAGENASE CLOSTRIDIUM HIST. 30 GRAMS TUBE TP SCH (11:24)
[2022-06-23] MEDS: SODIUM HYPOCHLORITE 0.25%- 473 ML BULK BOTTLE TP SCH (11:24)
[2022-06-23] MEDS: ATORVASTATIN CA 40 MG TABLET (FP) PO SCH (22:09)
[2022-06-24] MEDS: AMPICILLIN - 2 GM in SODIUM CHLORIDE 100 ML IVPB SCH ×6 (02:45→22:27)
[2022-06-24] MEDS: GABAPENTIN 300 MG CAPSULE PO SCH ×3 (05:14→22:27)
[2022-06-24] MEDS: INSULIN SLIDING SCALE (NOVOLOG) 1 VIAL SQ SCH ×4 (06:12→22:28)
[2022-06-24] MEDS: INSULIN (LEVEMIR) 100 UNITS/ML UNITS SQ SCH (06:34)
[2022-06-24] MEDS: INSULIN (NOVOLOG) ASPART 100 UNITS/ML 10ML VIAL SQ SCH ×3 (06:35→16:47)
[2022-06-24 09:38] LABS: HEMATOCRIT 30.5 % (35.4-49); HEMOGLOBIN 9.9 GM/dL (11.7-16.9); MCH 26.6 pg (25.7-33.7); MCHC 32.5 g/dl (32.0-35.9); MEAN PLT VOLUME 6.5 fl (7.5-11.1); PLATELET COUNT 347 10^3/uL (134-434); RBC 3.72 M/mm3 (4.00-5.60); WHITE BLOOD COUNT 8.5 K/mm3 (4.0-10.0)
[2022-06-24] MEDS: ENOXAPARIN NA (PORCINE) 40 MG/0.4 ML DISP.SYRIN SQ SCH (10:06)
[2022-06-24] MEDS: SENNOSIDES 8.6MG TABLET (FP) PO SCH (10:07)
[2022-06-24] MEDS: AMINO ACIDS/PROTEIN HYDROLYS 30 ML LIQUID.PKT PO SCH ×3 (10:07→16:46)
[2022-06-24] MEDS: CEFTRIAXONE 1 GM in DEXTROSE 5%-WATER - 50 ML IVPB SCH (10:07)
[2022-06-24] MEDS: FAMOTIDINE 20 MG TABLET PO SCH ×2 (10:08→22:27)
[2022-06-24] MEDS: MULTIVITAMINS (DAILY MVI) TABLET (FP) PO SCH (10:08)
[2022-06-24] MEDS: ZINC SULFATE 220 MG CAPSULE (FP) PO SCH (10:08)
[2022-06-24] MEDS: ASCORBIC ACID 500 MG TABLET (FP) PO SCH (10:08)
[2022-06-24] MEDS: COLLAGENASE CLOSTRIDIUM HIST. 30 GRAMS TUBE TP SCH (10:10)
[2022-06-24] MEDS: SODIUM HYPOCHLORITE 0.25%- 473 ML BULK BOTTLE TP SCH (10:11)
[2022-06-24] MEDS: CELECOXIB 100 MG CAPSULE PO SCH (10:11)
[2022-06-24 10:21] LABS: ALBUMIN 2.2 g/dl (3.4-5.0); BLOOD UREA NITROGEN 4.3 mg/dL (7-18); MAGNESIUM 1.9 mg/dL (1.8-2.4)
[2022-06-24 10:24] LABS: CREATININE 0.4 mg/dL (0.55-1.3); PHOSPHOROUS 3.1 mg/dL (2.5-4.9)
[2022-06-24 10:25] LABS: BILIRUBIN,TOTAL 0.6 mg/dL (0.2-1); TOT PROT 6.8 g/dl (6.4-8.2)
[2022-06-24] MEDS ORDERED: INSULIN (NOVOLOG) ASPART 100 UNITS/ML 10ML VIAL ONE (16:41)
[2022-06-24] MEDS: ATORVASTATIN CA 40 MG TABLET (FP) PO SCH (22:27)
[2022-06-25] MEDS: AMPICILLIN - 2 GM in SODIUM CHLORIDE 100 ML IVPB SCH ×5 (03:38→18:10)
[2022-06-25] MEDS: INSULIN (NOVOLOG) ASPART 100 UNITS/ML 10ML VIAL SQ SCH ×3 (06:38→18:01)
[2022-06-25] MEDS: INSULIN (LEVEMIR) 100 UNITS/ML UNITS SQ SCH (06:38)
[2022-06-25] MEDS: INSULIN SLIDING SCALE (NOVOLOG) 1 VIAL SQ SCH ×3 (06:38→18:00)
[2022-06-25] MEDS: GABAPENTIN 300 MG CAPSULE PO SCH ×2 (06:38→13:28)
[2022-06-25] MEDS: CEFTRIAXONE 1 GM in DEXTROSE 5%-WATER - 50 ML IVPB SCH (09:39)
[2022-06-25] MEDS: AMINO ACIDS/PROTEIN HYDROLYS 30 ML LIQUID.PKT PO SCH ×3 (09:39→18:10)
[2022-06-25] MEDS: ZINC SULFATE 220 MG CAPSULE (FP) PO SCH (09:40)
[2022-06-25] MEDS: ENOXAPARIN NA (PORCINE) 40 MG/0.4 ML DISP.SYRIN SQ SCH (09:40)
[2022-06-25] MEDS: CELECOXIB 100 MG CAPSULE PO SCH (09:40)
[2022-06-25] MEDS: SENNOSIDES 8.6MG TABLET (FP) PO SCH (09:41)
[2022-06-25] MEDS: MULTIVITAMINS (DAILY MVI) TABLET (FP) PO SCH (09:41)
[2022-06-25] MEDS: FAMOTIDINE 20 MG TABLET PO SCH (09:41)
[2022-06-25] MEDS: ASCORBIC ACID 500 MG TABLET (FP) PO SCH (09:41)
[2022-06-25] MEDS ORDERED: LACTOBACILLUS ACIDOPHILUS 1 TABLET PO ONE (13:14)
[2022-06-25] MEDS: COLLAGENASE CLOSTRIDIUM HIST. 30 GRAMS TUBE TP SCH (15:57)
[2022-06-25] MEDS: SODIUM HYPOCHLORITE 0.25%- 473 ML BULK BOTTLE TP SCH (15:57)
[2022-06-26] MEDS: ATORVASTATIN CA 40 MG TABLET (FP) PO SCH ×2 (00:21→23:05)
[2022-06-26] MEDS: FAMOTIDINE 20 MG TABLET PO SCH ×3 (00:21→23:06)
[2022-06-26] MEDS: GABAPENTIN 300 MG CAPSULE PO SCH ×4 (00:21→23:06)
[2022-06-26] MEDS: AMPICILLIN - 2 GM in SODIUM CHLORIDE 100 ML IVPB SCH ×7 (00:21→23:05)
[2022-06-26] MEDS: INSULIN SLIDING SCALE (NOVOLOG) 1 VIAL SQ SCH ×5 (00:22→17:15)
[2022-06-26] MEDS: INSULIN (LEVEMIR) 100 UNITS/ML UNITS SQ SCH (06:43)
[2022-06-26] MEDS: INSULIN (NOVOLOG) ASPART 100 UNITS/ML 10ML VIAL SQ SCH ×3 (06:43→17:15)
[2022-06-26] MEDS: MULTIVITAMINS (DAILY MVI) TABLET (FP) PO SCH (09:25)
[2022-06-26] MEDS: ZINC SULFATE 220 MG CAPSULE (FP) PO SCH (09:25)
[2022-06-26] MEDS: SENNOSIDES 8.6MG TABLET (FP) PO SCH (09:25)
[2022-06-26] MEDS: AMINO ACIDS/PROTEIN HYDROLYS 30 ML LIQUID.PKT PO SCH ×3 (09:25→17:14)
[2022-06-26] MEDS: ASCORBIC ACID 500 MG TABLET (FP) PO SCH (09:26)
[2022-06-26] MEDS: ENOXAPARIN NA (PORCINE) 40 MG/0.4 ML DISP.SYRIN SQ SCH (09:26)
[2022-06-26] MEDS: CEFTRIAXONE 1 GM in DEXTROSE 5%-WATER - 50 ML IVPB SCH (09:27)
[2022-06-26] MEDS: CELECOXIB 100 MG CAPSULE PO SCH (09:28)
[2022-06-26] MEDS: COLLAGENASE CLOSTRIDIUM HIST. 30 GRAMS TUBE TP SCH (09:49)
[2022-06-26] MEDS: SODIUM HYPOCHLORITE 0.25%- 473 ML BULK BOTTLE TP SCH (09:50)
[2022-06-26 10:16] LABS: HEMATOCRIT 29.6 % (35.4-49); HEMOGLOBIN 9.8 GM/dL (11.7-16.9); MCH 26.8 pg (25.7-33.7); MEAN CELL VOLUME 81.2 fl (80-96); MEAN PLT VOLUME 6.5 fl (7.5-11.1); PLATELET COUNT 324 10^3/uL (134-434); RBC 3.64 M/mm3 (4.00-5.60); RDW 15.8 % (11.9-15.9); WHITE BLOOD COUNT 7.8 K/mm3 (4.0-10.0)
[2022-06-26 10:31] LABS: ALBUMIN 2.1 g/dl (3.4-5.0); MAGNESIUM 1.9 mg/dL (1.8-2.4)
[2022-06-26 10:34] LABS: CREATININE 0.4 mg/dL (0.55-1.3); PHOSPHOROUS 2.8 mg/dL (2.5-4.9)
[2022-06-26 10:35] LABS: BILIRUBIN,TOTAL 0.3 mg/dL (0.2-1); TOT PROT 6.7 g/dl (6.4-8.2)
[2022-06-27] MEDS: AMPICILLIN - 2 GM in SODIUM CHLORIDE 100 ML IVPB SCH ×6 (02:51→21:01)
[2022-06-27] MEDS: GABAPENTIN 300 MG CAPSULE PO SCH ×3 (06:36→22:25)
[2022-06-27] MEDS: INSULIN (NOVOLOG) ASPART 100 UNITS/ML 10ML VIAL SQ SCH ×3 (07:15→17:22)
[2022-06-27] MEDS: INSULIN (LEVEMIR) 100 UNITS/ML UNITS SQ SCH (07:15)
[2022-06-27] MEDS: INSULIN SLIDING SCALE (NOVOLOG) 1 VIAL SQ SCH ×4 (07:15→21:45)
[2022-06-27 08:02] LABS: HEMATOCRIT 30.8 % (35.4-49); HEMOGLOBIN 10.2 GM/dL (11.7-16.9); MCH 26.6 pg (25.7-33.7); MEAN CELL VOLUME 80.7 fl (80-96); MEAN PLT VOLUME 6.3 fl (7.5-11.1); PLATELET COUNT 326 10^3/uL (134-434); RBC 3.81 M/mm3 (4.00-5.60); RDW 15.7 % (11.9-15.9); WHITE BLOOD COUNT 8.6 K/mm3 (4.0-10.0)
[2022-06-27 08:18] LABS: ALBUMIN 2.1 g/dl (3.4-5.0); BLOOD UREA NITROGEN 3.1 mg/dL (7-18); CALCIUM 7.8 mg/dL (8.5-10.1); MAGNESIUM 1.7 mg/dL (1.8-2.4)
[2022-06-27 08:21] LABS: PHOSPHOROUS 2.7 mg/dL (2.5-4.9)
[2022-06-27 08:22] LABS: CREATININE 0.4 mg/dL (0.55-1.3)
[2022-06-27 08:23] LABS: BILIRUBIN,TOTAL 0.3 mg/dL (0.2-1); TOT PROT 6.8 g/dl (6.4-8.2)
[2022-06-27] MEDS: AMINO ACIDS/PROTEIN HYDROLYS 30 ML LIQUID.PKT PO SCH ×3 (10:04→17:52)
[2022-06-27] MEDS: COLLAGENASE CLOSTRIDIUM HIST. 30 GRAMS TUBE TP SCH (10:13)
[2022-06-27] MEDS: ENOXAPARIN NA (PORCINE) 40 MG/0.4 ML DISP.SYRIN SQ SCH (10:14)
[2022-06-27] MEDS: ASCORBIC ACID 500 MG TABLET (FP) PO SCH (10:15)
[2022-06-27] MEDS: FAMOTIDINE 20 MG TABLET PO SCH ×2 (10:15→22:25)
[2022-06-27] MEDS: ZINC SULFATE 220 MG CAPSULE (FP) PO SCH (10:15)
[2022-06-27] MEDS: SENNOSIDES 8.6MG TABLET (FP) PO SCH (10:15)
[2022-06-27] MEDS: MULTIVITAMINS (DAILY MVI) TABLET (FP) PO SCH (10:16)
[2022-06-27] MEDS: CELECOXIB 100 MG CAPSULE PO SCH (10:56)
[2022-06-27] MEDS: SODIUM HYPOCHLORITE 0.25%- 473 ML BULK BOTTLE TP SCH (10:57)
[2022-06-27] MEDS: CEFTRIAXONE 1 GM in DEXTROSE 5%-WATER - 50 ML IVPB SCH (12:23)
[2022-06-27] MEDS: ATORVASTATIN CA 40 MG TABLET (FP) PO SCH (22:25)
[2022-06-28] MEDS: AMPICILLIN - 2 GM in SODIUM CHLORIDE 100 ML IVPB SCH ×6 (01:49→21:47)
[2022-06-28] MEDS: GABAPENTIN 300 MG CAPSULE PO SCH ×3 (05:22→21:47)
[2022-06-28] MEDS: INSULIN SLIDING SCALE (NOVOLOG) 1 VIAL SQ SCH ×4 (06:49→21:51)
[2022-06-28] MEDS: INSULIN (LEVEMIR) 100 UNITS/ML UNITS SQ SCH (06:49)
[2022-06-28] MEDS: INSULIN (NOVOLOG) ASPART 100 UNITS/ML 10ML VIAL SQ SCH ×3 (06:49→16:59)
[2022-06-28] MEDS: AMINO ACIDS/PROTEIN HYDROLYS 30 ML LIQUID.PKT PO SCH ×3 (10:08→17:01)
[2022-06-28] MEDS: FAMOTIDINE 20 MG TABLET PO SCH ×2 (10:09→21:47)
[2022-06-28] MEDS: ASCORBIC ACID 500 MG TABLET (FP) PO SCH (10:09)
[2022-06-28] MEDS: ZINC SULFATE 220 MG CAPSULE (FP) PO SCH (10:09)
[2022-06-28] MEDS: SENNOSIDES 8.6MG TABLET (FP) PO SCH (10:09)
[2022-06-28] MEDS: ENOXAPARIN NA (PORCINE) 40 MG/0.4 ML DISP.SYRIN SQ SCH (10:09)
[2022-06-28] MEDS: MULTIVITAMINS (DAILY MVI) TABLET (FP) PO SCH (10:10)
[2022-06-28] MEDS: CEFTRIAXONE 1 GM in DEXTROSE 5%-WATER - 50 ML IVPB SCH (10:10)
[2022-06-28] MEDS: CELECOXIB 100 MG CAPSULE PO SCH (10:12)
[2022-06-28] MEDS: COLLAGENASE CLOSTRIDIUM HIST. 30 GRAMS TUBE TP SCH (10:21)
[2022-06-28] MEDS: SODIUM HYPOCHLORITE 0.25%- 473 ML BULK BOTTLE TP SCH (10:21)
[2022-06-28] MEDS: ATORVASTATIN CA 40 MG TABLET (FP) PO SCH (21:47)
[2022-06-29] MEDS: AMPICILLIN - 2 GM in SODIUM CHLORIDE 100 ML IVPB SCH ×6 (01:42→22:16)
[2022-06-29] MEDS: GABAPENTIN 300 MG CAPSULE PO SCH ×3 (05:22→22:16)
[2022-06-29] MEDS: INSULIN SLIDING SCALE (NOVOLOG) 1 VIAL SQ SCH ×4 (06:40→22:16)
[2022-06-29] MEDS: INSULIN (NOVOLOG) ASPART 100 UNITS/ML 10ML VIAL SQ SCH ×3 (06:40→17:39)
[2022-06-29] MEDS: INSULIN (LEVEMIR) 100 UNITS/ML UNITS SQ SCH (06:41)
[2022-06-29] MEDS: AMINO ACIDS/PROTEIN HYDROLYS 30 ML LIQUID.PKT PO SCH ×3 (10:03→17:35)
[2022-06-29] MEDS: SENNOSIDES 8.6MG TABLET (FP) PO SCH (10:03)
[2022-06-29] MEDS: ENOXAPARIN NA (PORCINE) 40 MG/0.4 ML DISP.SYRIN SQ SCH (10:04)
[2022-06-29] MEDS: ZINC SULFATE 220 MG CAPSULE (FP) PO SCH (10:05)
[2022-06-29] MEDS: MULTIVITAMINS (DAILY MVI) TABLET (FP) PO SCH (10:05)
[2022-06-29] MEDS: FAMOTIDINE 20 MG TABLET PO SCH ×2 (10:05→22:16)
[2022-06-29] MEDS: CELECOXIB 100 MG CAPSULE PO SCH (10:05)
[2022-06-29] MEDS: ASCORBIC ACID 500 MG TABLET (FP) PO SCH (10:05)
[2022-06-29] MEDS: SODIUM HYPOCHLORITE 0.25%- 473 ML BULK BOTTLE TP SCH (10:07)
[2022-06-29] MEDS: COLLAGENASE CLOSTRIDIUM HIST. 30 GRAMS TUBE TP SCH (10:07)
[2022-06-29] MEDS: CEFTRIAXONE 1 GM in DEXTROSE 5%-WATER - 50 ML IVPB SCH (11:52)
[2022-06-29] MEDS: ATORVASTATIN CA 40 MG TABLET (FP) PO SCH (22:16)
[2022-06-30] MEDS: AMPICILLIN - 2 GM in SODIUM CHLORIDE 100 ML IVPB SCH ×6 (02:30→22:20)
[2022-06-30] MEDS: INSULIN (NOVOLOG) ASPART 100 UNITS/ML 10ML VIAL SQ SCH ×3 (06:38→16:47)
[2022-06-30] MEDS: INSULIN (LEVEMIR) 100 UNITS/ML UNITS SQ SCH (06:38)
[2022-06-30] MEDS: GABAPENTIN 300 MG CAPSULE PO SCH ×3 (06:38→22:21)
[2022-06-30] MEDS: INSULIN SLIDING SCALE (NOVOLOG) 1 VIAL SQ SCH ×4 (06:39→22:21)
[2022-06-30 08:33] LABS: HEMATOCRIT 32.1 % (35.4-49); HEMOGLOBIN 10.3 GM/dL (11.7-16.9); MCH 26.3 pg (25.7-33.7); MCHC 32.2 g/dl (32.0-35.9); MEAN CELL VOLUME 81.7 fl (80-96); PLATELET COUNT 353 10^3/uL (134-434); RBC 3.93 M/mm3 (4.00-5.60); RDW 16.1 % (11.9-15.9); WHITE BLOOD COUNT 9.2 K/mm3 (4.0-10.0)
[2022-06-30 08:55] LABS: ALBUMIN 2.1 g/dl (3.4-5.0); CALCIUM 7.9 mg/dL (8.5-10.1)
[2022-06-30 08:56] LABS: BLOOD UREA NITROGEN 4.5 mg/dL (7-18); MAGNESIUM 1.8 mg/dL (1.8-2.4)
[2022-06-30 08:59] LABS: CREATININE 0.5 mg/dL (0.55-1.3); PHOSPHOROUS 2.9 mg/dL (2.5-4.9)
[2022-06-30 09:00] LABS: BILIRUBIN,TOTAL 0.3 mg/dL (0.2-1)
[2022-06-30 09:01] LABS: TOT PROT 6.6 g/dl (6.4-8.2)
[2022-06-30] MEDS: ENOXAPARIN NA (PORCINE) 40 MG/0.4 ML DISP.SYRIN SQ SCH (09:33)
[2022-06-30] MEDS: CEFTRIAXONE 1 GM in DEXTROSE 5%-WATER - 50 ML IVPB SCH (09:33)
[2022-06-30] MEDS: COLLAGENASE CLOSTRIDIUM HIST. 30 GRAMS TUBE TP SCH (09:34)
[2022-06-30] MEDS: CELECOXIB 100 MG CAPSULE PO SCH (09:34)
[2022-06-30] MEDS: SENNOSIDES 8.6MG TABLET (FP) PO SCH (09:34)
[2022-06-30] MEDS: MULTIVITAMINS (DAILY MVI) TABLET (FP) PO SCH (09:34)
[2022-06-30] MEDS: ASCORBIC ACID 500 MG TABLET (FP) PO SCH (09:34)
[2022-06-30] MEDS: FAMOTIDINE 20 MG TABLET PO SCH ×2 (09:34→22:21)
[2022-06-30] MEDS: AMINO ACIDS/PROTEIN HYDROLYS 30 ML LIQUID.PKT PO SCH ×3 (09:34→16:48)
[2022-06-30] MEDS: ZINC SULFATE 220 MG CAPSULE (FP) PO SCH (09:36)
[2022-06-30] MEDS: SODIUM HYPOCHLORITE 0.25%- 473 ML BULK BOTTLE TP SCH (13:11)
[2022-06-30] MEDS ORDERED: INSULIN (LEVEMIR) 100 UNITS/ML UNITS SQ ONE (17:49)
[2022-06-30] MEDS ORDERED: INSULIN (NOVOLOG) ASPART 100 UNITS/ML 10ML VIAL ONE ×2 (17:49→21:54)
[2022-06-30] MEDS: ATORVASTATIN CA 40 MG TABLET (FP) PO SCH (22:21)
[2022-07-01] MEDS: AMPICILLIN - 2 GM in SODIUM CHLORIDE 100 ML IVPB SCH ×4 (03:34→15:13)
[2022-07-01] MEDS: INSULIN (NOVOLOG) ASPART 100 UNITS/ML 10ML VIAL SQ SCH ×2 (06:18→15:15)
[2022-07-01] MEDS: GABAPENTIN 300 MG CAPSULE PO SCH ×2 (06:18→15:15)
[2022-07-01] MEDS: INSULIN (LEVEMIR) 100 UNITS/ML UNITS SQ SCH (06:19)
[2022-07-01] MEDS: INSULIN SLIDING SCALE (NOVOLOG) 1 VIAL SQ SCH ×2 (06:19→15:14)
[2022-07-01] MEDS: CEFTRIAXONE 1 GM in DEXTROSE 5%-WATER - 50 ML IVPB SCH (09:00)
[2022-07-01] MEDS: AMINO ACIDS/PROTEIN HYDROLYS 30 ML LIQUID.PKT PO SCH ×2 (10:28→12:00)
[2022-07-01] MEDS: ASCORBIC ACID 500 MG TABLET (FP) PO SCH (10:29)
[2022-07-01] MEDS: SENNOSIDES 8.6MG TABLET (FP) PO SCH (10:30)
[2022-07-01] MEDS: ZINC SULFATE 220 MG CAPSULE (FP) PO SCH (10:30)
[2022-07-01] MEDS: MULTIVITAMINS (DAILY MVI) TABLET (FP) PO SCH (10:31)
[2022-07-01] MEDS: FAMOTIDINE 20 MG TABLET PO SCH (10:32)
[2022-07-01] MEDS: ENOXAPARIN NA (PORCINE) 40 MG/0.4 ML DISP.SYRIN SQ SCH (10:36)
[2022-07-01] MEDS: CELECOXIB 100 MG CAPSULE PO SCH (11:12)
[2022-07-01] MEDS: COLLAGENASE CLOSTRIDIUM HIST. 30 GRAMS TUBE TP SCH (13:46)
[2022-07-01] MEDS: SODIUM HYPOCHLORITE 0.25%- 473 ML BULK BOTTLE TP SCH (13:46)
[2022-07-01 14:45] VITALS: RESP 18
[2022-07-01 19:04] VITALS: BP 108/60; PULSE 78; TEMP 97.8
== END 2022-07-01 17:40 | DRG 710 ==
LOC: JER 16:01 → JERBED 23:13 → J7W 06-06 01:52
PROVIDERS: ADMIT Internal Medicine; ATTEND Internal Medicine
PROC: 0QBS0ZZ Excision of Coccyx, Open Approach (ICD-10-PCS; 2022-06-09)
PROC: 0QB10ZZ Excision of Sacrum, Open Approach (ICD-10-PCS; 2022-06-09)
PROC: 02HV33Z Insertion of Infusion Device into Superior Vena Cava, Percutaneous Approach (ICD-10-PCS; principal; 2022-07-01)
PROC: B548ZZA Ultrasonography of Superior Vena Cava, Guidance (ICD-10-PCS; 2022-07-01)
DX: A41.81 Sepsis due to Enterococcus (principal); L89.154 Pressure ulcer of sacral region, stage 4; E87.1 Hypo-osmolality and hyponatremia; M46.28 Osteomyelitis of vertebra, sacral and sacrococcygeal region; E78.5 Hyperlipidemia, unspecified; Z68.32 Body mass index [BMI] 32.0-32.9, adult; E66.9 Obesity, unspecified; G82.20 Paraplegia, unspecified; E11.65 Type 2 diabetes mellitus with hyperglycemia; E87.6 Hypokalemia; I10 Essential (primary) hypertension; E87.5 Hyperkalemia; N39.0 Urinary tract infection, site not specified; B96.20 Unspecified Escherichia coli [E. coli] as the cause of diseases classified elsewhere; R33.9 Retention of urine, unspecified
CPT/HCPCS: 0241U-QW; 36415; 36569; 71045-TC-FY; 74177-TC; 80048; 80053; 81003; 82550; 82553; 82803; 82962; 83605; 83735; 84100; 84484; 85025; 85027; 85610; 85651; 85730; 86140; 86850; 86900; 86901; 87040; 87070; 87075; 87076; 87086; 87186; 87205; 88304-TC; 93005; 93010; 94760; 99285-25; C9803-CS; G0463-25; G0480; Q9967; U0003; U0005

== ENCOUNTER 2022-09-22 17:54 | Emergency (ER) | payer OTHER ==
[2022-09-22 18:28] VITALS: BMI 29.5
[2022-09-23 00:04] VITALS: BP 115/71; PULSE 95; RESP 18; TEMP 97.9
== END 2022-09-22 23:45 | disposition home or self-care (01) ==
LOC: JER 17:54
PROC: 0T9B70Z Drainage of Bladder with Drainage Device, Via Natural or Artificial Opening (ICD-10-PCS; principal; 2022-09-22)
DX: T83.031A Leakage of indwelling urethral catheter, initial encounter (principal); Y84.6 Urinary catheterization as the cause of abnormal reaction of the patient, or of later complication, without mention of misadventure at the time of the procedure
CPT/HCPCS: 99283-25